=== PATIENT | female | born 1965 | race Caucasian/White ===

== ENCOUNTER 2023-08-08 18:53 | Emergency (ER) | payer OTHER, SELFPAY ==
[2023-08-08 19:03] VITALS: BP 178/100; PULSE 77; RESP 16; TEMP 36.5; O2SAT 97; BMI 21.0
[2023-08-08 19:14] VITALS: RESP 18
--- NOTE | 2023-08-08 19:18 | ED.NECK1 ---
Documented by User: FEDE Strong 08/08/23 19:21 HPI - Neck Pain/Injury General Chief Complaint: Neck Pain/Injury Stated Complaint: NECK PAIN, HEAD PAIN Time Seen by Provider: 08/08/23 19:05 Source: patient Mode of arrival: walk-in Limitations: no limitations History of Present Illness HPI Narrative: Patient is a 57-year-old female who presents to the emergency department with bilateral neck pain that she noticed this morning on waking. She denies any mechanism of injury or trauma. She denies any pain radiation to the extremities or peripheral paresthesias. She states she has significantly more pain on the left paracervical area into the left trapezius area. Pain is significantly worse with movement of the neck. She has not had any visual changes, chest pain, shortness of breath. She is ambulatory. She took aspirin and Tylenol as well as a Flexeril earlier today without improvement. Related Data Home Medications Medication Instructions Recorded Confirmed atorvastatin 20 mg tablet 20 mg PO DAILY 08/08/23 08/08/23 buspirone 10 mg tablet 10 mg PO BID 08/08/23 08/08/23 sertraline 50 mg tablet 50 mg PO DAILY 08/08/23 08/08/23 Previous Rx's Medication Instructions Recorded methylprednisolone 4 mg tablets in See Rx Instructions .Route 08/08/23 a dose pack (Medrol (Adolfo)) .COMPLEX #21 ea nabumetone 750 mg tablet 750 mg PO BID PRN pain #10 tabs 08/08/23 orphenadrine citrate 100 mg 100 mg PO BID PRN muscle pain #14 08/08/23 tablet,extended release tabs Allergies Allergy/AdvReac Type Severity Reaction Status Date / Time No Known Drug Allergies Allergy Verified 08/08/23 19:07 Review of Systems ROS Constitutional Denies: fever or chills Ears, nose, mouth, and throat Reports: neck pain; Denies: throat pain or nasal congestion Cardiovascular Denies: chest pain Respiratory Denies: shortness of breath or cough Gastrointestinal Denies: nausea or vomiting Musculoskeletal Reports: neck pain; Denies: back pain or extremity pain Integumentary/Breast Denies: rash Neurological Reports: headache Endocrine Denies: excessive urination Hematologic/Lymphatic Denies: easy bruising PFSH PFSH Social History Smoking status: Current every day smoker Exam Narrative Exam Narrative: Gen.: Awake, alert, in no distress Head: Normocephalic, atraumatic ENT: Moist mucous membranes; No bony point tenderness of the midline cervical spine. Diffuse tenderness of the left paraspinal muscles of the cervical spine and point tenderness of the left trapezius muscle. 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 Psych: Normal mood and affect Neuro: No focal neuro deficit Skin: Warm, dry, intact Constitutional Vital Signs, click to edit/add: Last Vital Signs Temp 97.7 F 08/08/23 19:03 Pulse 77 08/08/23 19:03 Resp 18 08/08/23 19:14 BP 178/100 H 08/08/23 19:03 Pulse Ox 97 08/08/23 19:03 O2 Del Method Room Air 08/08/23 19:03 Course Vital Signs Vital signs: Vital Signs Temperature 97.7 F 08/08/23 19:03 Pulse Rate 77 08/08/23 19:03 Respiratory Rate 16 08/08/23 19:03 Blood Pressure 178/100 H 08/08/23 19:03 Pulse Oximetry 97 08/08/23 19:03 Oxygen Delivery Method Room Air 08/08/23 19:03 Temperature 97.7 F 08/08/23 19:03 Pulse Rate 77 08/08/23 19:03 Respiratory Rate 18 08/08/23 19:14 Blood Pressure 178/100 H 08/08/23 19:03 Pulse Oximetry 97 08/08/23 19:03 Oxygen Delivery Method Room Air 08/08/23 19:03 MDM - Neck Pain/Injury MDM Narrative Medical decision making narrative: No indication for x-rays at this time as the patient has no radicular symptoms, no falls or injuries. She is treated for symptoms in the ER and discharged home with medications for symptoms as well. Follow-up with PCP and return to the ER if symptoms change or worsen Medical Records Attestation: I reviewed the patient's medical records. Discharge Plan Discharge Chief Complaint: Neck Pain/Injury Clinical Impression: Torticollis Patient Disposition: Home, Self-Care Time of Disposition Decision: 19:17 Condition: Good Prescriptions / Home Meds: New nabumetone 750 mg tablet 750 mg PO BID PRN (Reason: pain) Qty: 10 0RF Rx Instructions: Take with food orphenadrine citrate 100 mg tablet extended release 100 mg PO BID PRN (Reason: muscle pain) Qty: 14 0RF methylprednisolone [Medrol (Adolfo)] 4 mg tablets,dose pack See Rx Instructions .ROUTE .COMPLEX Qty: 21 0RF Rx Instructions: Taper as directed No Action atorvastatin 20 mg tablet 20 mg PO DAILY buspirone 10 mg tablet 10 mg PO BID sertraline 50 mg tablet 50 mg PO DAILY Instructions: Neck Pain (ED) Stand Alone Forms: Portal Instructions Referrals: Physician,Non-Staff, MD [Primary Care Provider] - 1 week Discharge Date/Time: 08/08/23 19:44 Documented by User: Morris Hernández 08/09/23 19:01 HPI - Neck Pain/Injury General Chief Complaint: Neck Pain/Injury Stated Complaint: NECK PAIN, HEAD PAIN Time Seen by Provider: 08/08/23 19:05 Related Data Home Medications Medication Instructions Recorded Confirmed atorvastatin 20 mg tablet 20 mg PO DAILY 08/08/23 08/08/23 buspirone 10 mg tablet 10 mg PO BID 08/08/23 08/08/23 sertraline 50 mg tablet 50 mg PO DAILY 08/08/23 08/08/23 Previous Rx's Medication Instructions Recorded methylprednisolone 4 mg tablets in See Rx Instructions .Route 08/08/23 a dose pack (Medrol (Adolfo)) .COMPLEX #21 ea nabumetone 750 mg tablet 750 mg PO BID PRN pain #10 tabs 08/08/23 orphenadrine citrate 100 mg 100 mg PO BID PRN muscle pain #14 08/08/23 tablet,extended release tabs Allergies Allergy/AdvReac Type Severity Reaction Status Date / Time No Known Drug Allergies Allergy Verified 08/08/23 19:07 [facility] Social History Smoking status: Current every day smoker Exam Constitutional Vital Signs, click to edit/add: Last Vital Signs Temp 97.7 F 08/08/23 19:03 Pulse 77 08/08/23 19:03 Resp 18 08/08/23 19:14 BP 178/100 H 08/08/23 19:03 Pulse Ox 97 08/08/23 19:03 O2 Del Method Room Air 08/08/23 19:03 Course Vital Signs Vital signs: Vital Signs Temperature 97.7 F 08/08/23 19:03 Pulse Rate 77 08/08/23 19:03 Respiratory Rate 16 08/08/23 19:03 Blood Pressure 178/100 H 08/08/23 19:03 Pulse Oximetry 97 08/08/23 19:03 Oxygen Delivery Method Room Air 08/08/23 19:03 Temperature 97.7 F 08/08/23 19:03 Pulse Rate 77 08/08/23 19:03 Respiratory Rate 18 08/08/23 19:14 Blood Pressure 178/100 H 08/08/23 19:03 Pulse Oximetry 97 08/08/23 19:03 Oxygen Delivery Method Room Air 08/08/23 19:03 MDM - Neck Pain/Injury MDM Narrative Medical decision making narrative: No indication for x-rays at this time as the patient has no radicular symptoms, no falls or injuries. She is treated for symptoms in the ER and discharged home with medications for symptoms as well. Follow-up with PCP and return to the ER if symptoms change or worsen For this patient encounter I reviewed the mid-level provider?s documentation, medical decision-making and treatment plan, and I personally spent time with this patient. Shared APC visit, physician attestation: [id number]: The visit was performed by both a physician and an APC. I performed all aspects of MDM as documented. - Kevin, DO Discharge Plan Discharge Chief Complaint: Neck Pain/Injury Clinical Impression: Torticollis Patient Disposition: Home, Self-Care Time of Disposition Decision: 19:17 Condition: Good Prescriptions / Home Meds: New nabumetone 750 mg tablet 750 mg PO BID PRN (Reason: pain) Qty: 10 0RF Rx Instructions: Take with food orphenadrine citrate 100 mg tablet extended release 100 mg PO BID PRN (Reason: muscle pain) Qty: 14 0RF methylprednisolone [Medrol (Adolfo)] 4 mg tablets,dose pack See Rx Instructions .ROUTE .COMPLEX Qty: 21 0RF Rx Instructions: Taper as directed No Action atorvastatin 20 mg tablet 20 mg PO DAILY buspirone 10 mg tablet 10 mg PO BID sertraline 50 mg tablet 50 mg PO DAILY Instructions: Neck Pain (ED) Stand Alone Forms: Portal Instructions Referrals: Physician,Non-Staff, MD [Primary Care Provider] - 1 week Discharge Date/Time: 08/08/23 19:44
[2023-08-08] MEDS: KETOROLAC TROMETHAMINE 60 MG/2 ML VIAL IM (19:35)
[2023-08-08] MEDS: METHYLPREDNISOLONE SOD SUCC PF 125 MG/2 ML VIAL IM (19:35)
[2023-08-08] MEDS: DIAZEPAM 10 MG/2 ML SYRINGE 5 MG IM (19:35)
== END 2023-08-08 19:44 | disposition home or self-care (01) ==
PROVIDERS: Emergency Provider Emergency Medicine
DX: M43.6 Torticollis (principal); Z79.899 Other long term (current) drug therapy; F17.210 Nicotine dependence, cigarettes, uncomplicated
CPT/HCPCS: 96372; 99284; J1885; J2930; J3360

== ENCOUNTER 2024-08-21 05:01 | Emergency (ER) | payer OTHER, SELFPAY ==
--- OUTSIDE RECORDS SUMMARY | 2024-08-21 05:10 | XMS_ITS | CCD ---
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 Coding Summary HTMLBase 64 ZekrnzwzMWq9dWe+PGhlY WQ+MI5HTEHzM56osCNuaJ 3RU4lHQJ5JFOJVMOMIEP5 ZSE0vfTE6BOolY2NkovPs TsruyEDuJM83ZUt7NZI7d BcmQEfrqF6tlGFiH4s8Nj DfUC34jG80YYxlTMFcCaT 3LjZpbjsgbWFy T6qyXhRugNWlWcp+PHRhY mxlIHdpZHRoPScxMDAlJy NueKhkBA0dUb3pLWAdXAN vbGxhcHNlOiBj j8ylOPZoLDdnNP0spIqdH 7OkdCF9KPFak3n7Iv69xM I+OTSgFHU8yLreKHlka74 2FsRct0nmRZV4 qMWeMVpbOVU0R96rb3F2H YAhXBFtKVE5nWE7hS2dlV lpzouhG2GgiBKsMrQ1TRC 8sVMzjM1oeIuj kiaffN6sTpk+E35GNS7EZ UVPAN7OUhj5E7VaFmjntR I+CG99SQNvEV40uDBdnNP zv4zvzVn4MbWa GXCdYRZ1uWhlTGnfd7HaK XHsA44vaWPqj6Z8QCZawD lfbXPmPyMsuCF9xM4eHPi ecjdja6ucimdm Sknbw1myxz25mJ43R75jJ FgfUBBbZGJ2ZDKxDBCypD ovtm9tfE9yDt4+FKoxb7k xc2kwkFn6XfUu FQVayyQptCljKWU6p9UnL g45O7RpwLwir6AsWrd4gk 94oXZgc6L1nVQ0VNjaCGR lmU1aLGhnYtL8 QVDkYdOacQ44mHWqVHmiP f1olLtqrJymZJ2lLTBjem mfACRyxT1iAHQwoDQhvEk tTR4aLLEhsmyo p450JeTaCWJ8SXCqrPHxI 0YxdJ7xBdXkHEHsKFZkP7 BwzZYhUTamI118WBqtCgY 1NGDlbhWlN5Fy UBByjMbuJtT1n9S4Jt0Nn 6ZlsomkRJI3DWbsERAaDp MsNuCnSmK2J7OmYqq7HSJ btTjoJB0kU6Ru EYLvfrqcbkmfcJB2DDMdH DYxxZ09eBEuPLpmLy3qm4 Y4d051SLJaMQRgbG19Ez1 udDogMTBwdCBU sF4xalgzz4fwvrcbSfSkI KXpLLq6NFq0BOYbuBrsMs WnWQH7ApT8TPE7wIRbmF4 onNiibtfwkR5x Oyc+O99jaJ1zWPK8WFF9r cdpHJNxxeDfLI80JQ53W9 RyPjwvdGFibGU+PGRpdiB amHhwLP3aVxNv b7pla0MmSJefU7BuVSWeP HkiWzv8KNHjZKX0xGD8rY 5iWLBnOAscv3W3iAT4R8K ifhJnke6aj4ch FCWfOIkaR87cfEHuk9Q6D ZGeuWA1PNDgdQnqObJcsL 93Oyc+ZXHznXnbb6EeTyj dk4ajy4ibmJu8 LnHdOOEzueWelOjiEEX8c 5VeKw81N27sGSybPUIsIV CqOSNgFOQlqEeuwe4fiM8 wIi8+PGNvbCB3 pEG9mV6sSQMiIlB7LTaaK 343DhPseHQlOyogt5igf6 qlyXi9ZdQmAIZparErzTu lERA6m6JgTp95 X99yRKynKCIpVRQqJZCfF WDtfWyiko5zfF2nJz0+PC 0nx9sfif00uO40vFP+PHR pGIU5bFboKPof XBZjgA1rATxtMsM3DHOfW vGgeW09aNYiBQyoDz3vvR akpZenIQ5lSHQakyivp70 6LpAhq5lgVKId yCEvGYvcTRZ2D38ox4U0W CWwAOEzREA0bIT4lP4ltP lnbjogbGVmdDsgdmVydGl cCZrmSMwsU534 IHRvcDsnPlBhdGllbnQgT aYeQNz4K0JdKoz8FQSuuZ soCL6wyNHiNQpdUf7qnUd ovHmgSS9yFYMc xuvbl894VxIcr0twDMJqn WCeHMxsKIZ6S75xx8F5SM ArUREcZYT6aCW3hH8xhSe nbjogbGVmdDsg qiOnpCadBFfdNSjlP471Z HRvcDsnPkJpcnRoIERhdG U6DV48DY86iNSei0C2bHC 1I6SoKKOzrwgm ukyoiAL5YRKeOEEmdE36N g9pbDngGa2gOSOpCRF8LF TakRClL6DqtP4sVaQoRGD iHXPvV3QtsAKu PGjzD392EVcnEsF5CWRgo aDuP6UhBYAbuWhtBuH5o2 A8Sg5XD3V4UD02TX34dLN uu8L4eXL9Y3Qd ZTJcpjuivaprlDC8ANKrA AHmyX01It3eqDqxBf4uOE LeZXS4ZLLizBEkW4CthK4 yOiAjMDAwMDAw H9AvbLXgEPsfI608IGfqT iK3YUCipvJlJ0GiEFUucY gyNjU5f4F1Yz4TCVi0CT3 3AR29hAVgf1V3 tWP0O2ObGITuzlhfylijs AW0BYSvGIRjrZ54Hq2wcW orCq5yUVGhJQP2UFDbxZZ kW2MojH1nRaYh KTTrOGRtE9XbaITeKVtgO 865UUyrWyJ1JHMnpzQeS9 FgNDQvjNmtQlD4g0J6Ku4 HNYUdWF42CSY1 iCW9AA76SB67U5CsHjxxs GFibGU+PHRhYmxlIHdpZH RoPScxMDAlJyBzdHlsZT0 jGy4bPEHsYMXi gQkquLHwLlEwi2pkFRFwK WnnMU1vtLbmO9DvhVL0JM Vqu5d0Zn77V22pS0HgnXD +BGTpjFP4mDM8 iY4kOpRhHlF5LTrgM987L pAjeLShZonva4utq2yckD v4YdY8OKDracJbrLfoQDO 3x7XgZz71C23h IHdpZHRoPSIxNSUiIHZhb Zzcfh6ufS9gWk7+PGNvbC D2pCX9gG4kRiZvIxI3RSw hV076CrEvkOCd Pdvbv7jdb5hsdMa2UeCdH MSrqkLhkYzfNOT8t2JuFy 37A2EgfOols4OcIwn4nb6 3pUPyv9Q9bTT0 X4LgGBUtjwnrsOHobIluL B2oHNNstncqLADzpJ5uCX DxV0u9UrRtMtQ5JBzrR8F intR3TFPtaKNp JAciKAE5A14dp3J7AQCzD SGsEOU7lGI5jK7sgNnddj ogbGVmdDsgdmVydGljYWw rVJzlX140RHIf jOfxXPVazW1kXRNeiVVlu PluNX1nBASbxaakDxNDYR VSLCBTSEVSUkkgTDwvdGQ +UQIaVZO7mBuy RCqoFSSklF9vXSTxH0f4T gLqYjZ4NJidY8HwCESxpn tqTe52jQ2tBvKkQuU3MJq eQ4GueqJ7WGYo hKKlTWqwIUN2K44yh8Z4B SWiVTZkBMZ6jSL2nF4slA lnbjogbGVmdDsgdmVydGl qATgnNEdrO296 PXTrqTnxRgAlQjC3FfX1T jg0T6FtUrz3GQIycUkjFP 3uaLTvHYabWp3rwBkqwXn iLE3tLTWfghno YMDttP5kCFAauMGhaQazR J6vFZDkxoeyb793VkHuCE D5IWXidTCnW5ShwP6qPcB yTGMoBBAoL5Wr lWSaNDwjN921GOhuRfK4L URbsbXlF7QnGBYrxMhlKa A3i5Y1Dl37MgUNJTFavjn vdGQ+PHRkIHN0 iDvbWLbkITUcjC0gMXUsP 8f7PkSfXkA8LUzdE9RwPI FxdmtcMb78oL1fPxZjVmA 1NCxcR5LnitP1 OSRonWKjSNdfKPA9G71jd 6V6SVUsYSSbZCO8qSO5uQ 1hbGlnbjogbGVmdDsgdmV ydGljYWwtYWxp S316BCYciQztRzOHDYKFR TwvdGQ+MLVwCNT4hDjcAA dgGDYulU2rAROzJ7i8KnP tOhW8FKdoA8Go XECopaupVg80kD4wChUcM bU0GRkpL1HbqkZ1NDSulP BgFDlpDRE2E77op5P6EHG yJQXjKRO2lFM5 mO1uvWsqgouwwJSacVzwl vHvlIjrKAkuECyaJ959QE EigTntUjFfMLZsTF3ldSh vdGQ+QV64mc82 N0RcQxraYvs5HCUnLBG6i KK4zE5cULJyYDovu2P5oG I4R1MaimCdrm1qt1cpAUL dAHbgW88hgVTs o1X9KDVjcRM2BOXcaDgrW xOoyH50Qzd+PGNvbGdyb3 XqBriip5hzo6jzfQf9QdA wJSIgdmFsaWdu EWH1s2OwRu21I82hXSpmZ HRoPSIzMCUiIHZhbGlnbj 2ofJ3gKy1+LAEzzTJ2gHF 2bK6eHiNwKrF4 HJouM118GdUluECkFffnd 1egg5vfkMh3BmMuHDUevi PjySffRRV6o5MmBj48X0U yzDzmq3KqXuu3 jk32lGFrq9X8dTE5H1DcI HHskbczuPSetWlePU9tFN JpmcjzQECtaG7ePRPmE0n 3YhOePgF6LEku L7IecnJ0CREexZVgRMLyc IJHzR7vwknua0pjpobbCy YxVKPiGRb3ZPf8MFTbpGt fJmUnHCF8DbV2 URW0mGLqwV5ozMngvejbe G9wOyc+LXm1m4cgyMBwMA 6ytYY5CT88PQ87qMCnq4U 1xUX3W5JbTVSd ysaxcgytjYU7LHZcMKVlt N15Ys0tcSluGc1qPZDbRY S1ZDRamABbN6QktS8gZtI uLPSdPHKcG6My jMUlXXqnT003VXfdDuH7A EMjnbIfT8KnUZSdeUvwXt D4w6R3Ki8HQF72IM27FC2 6lHRon3D4oJF0 L0TdIUPxlireanqecUY8H WIzVWQffX38Zs1dyKfpIc 3lMFXhLZE5IZYixSNuQ2G tvI2cUiQtNFPh FWPfY0MliHVfSGtzR200A BjqMoR1MFDwdyZkZ7JzFP XueTanUoU3s6V3Av2HXg7 2FC08DB00uXEq w7R2fYT7J7KhXEKfscrhb sqrmYC9RPVdUOHeeZ27Hv 5bqQrgPo3rNNDcZNI2RWY xbEXxN1ZxaT0w QaIrXABpUNFpL6KneWBgO ZnwE006DNfpLnZ4TKYvnu GmA5UwAIZchIrxRzU6e5V 4Ty7QQMizxtw7 R0ZzVaamsMB+ZO63ZYEgZ A77mHEijGNcb4mbrVn5Tm HuHZZgPUR6bIpjXNilo4F kSDTgJ80jtXLt c2U (more content not included)... [facility] Coding Summary HTMLBase 64 ZhzwrgvoVSc0xIe+PGhlY WQ+TE5PRXOhS29jhUNcdK 6YR7qSWT9FTUMXYWVENI4 MFV6atRM6OLqqU9YxroWm TpbnnQIhCE42WSs8ETX9w LnbVDvukZ5kvFIgJ8w2Sd ZlEB69yS39XYczSSEaQuG 3LjZpbjsgbWFy H9jxXfGoeQMyQjw+PHRhY mxlIHdpZHRoPScxMDAlJy NonRenGR1iAt2mSDHnGLI vbGxhcHNlOiBj k9hxOPWeJAfjQC9kvOyfR 7CwyTZ1TVFnj9l6Ah15hA I+PNXiBUR2lSxrHDfsm04 4ZpMpd8cjOVU9 kCAxNPkiBIN0E35mm5R7T KIeGHNnAFZ4bLG6fM1jiO knlzmzM3AmhVStCyX4EVG 9gJCuaC9ngStw oxeyrT4oLcy+V42RDK4BZ OGWMQ7RCft3G1DtCopuiI I+UN33HOGaAR10xBXcwCW bh5bczAh9PzEy TKUxKSF6xSxwAUnia2CxW LPjC99ssKCcv3Y9ZVHniA bdxLXuArSguVX6fZ0mTFc feidwq5efqgla Zmghr6ntmi97oU20V54uC TcxVMUnBFL8LMZgPFTzfR xyty6ypD2jFe4+TDtsh1r sx7ahgOa4GsAl ATQuyyDfdBlaWSI5s6DoC o98W4OxdZphs5RvMes0jf 39qXFft7O3tWW7LSyqDDM mfT8oVYfxKbH7 IJGgWgEdsJ06nURmHBwaA v5epJpcmCizAP7dHUIwcl khTTTevA1kRMJqiURpfQo wVL2mERTfnjez t251NiOfGKE6HFGasTXkP 6EopH4jFhGtJFWnMCEwD9 JndCQsYDtmP711XCdsMxO 8SQJhvcGrU1Lw ZAHpiRieLcZ9d2P0St2Sf 6XmipnpRAA1MAhbBGGcZz MgGhNkCiZ7X1QnEpe0HPK txCnvXJ6dE4Ut JSWfqnfgdvkymPR6CNZnG OJozJ87uSUuXZerXw4cq3 O7k986HKUwAZIhoK83Sx6 udDogMTBwdCBU iX6heoczy7tmxnlmAcOwW CAoWZk0LUg8ZHQjvXewRe FeHXS7VcQ6VMV8gEYhsI5 dcOicctxosK6s Oyc+Q84tnA8sNJH3TIW2e zrbTZVcptNaKP78IT31M7 RyPjwvdGFibGU+PGRpdiB lbApoYO7wXsDq z4ucs9XgYZecG0YiCAFkC XbySed8UEKgQRV0nSW0hO 6xMHYcBJqih5S8rDE0Q7N qjcKsap4we8qb SYZgDUnjL66sfZEyv1Y1B GFppGT2QWYykHcvNaVkuJ 93Oyc+CZXzpClwm3UiOmr wn6xoi4mojNt6 CiZaGIUpbxHvgLcpUDV6y 6NhAx54J20wTRauYUJnTC OkDSGyJXZolSwmvv7lwP9 wIi8+PGNvbCB3 rID4vB8gUZNzCuC8GFgnV 621ZiNeoLGqDrdbr3tfq3 ndiFc9RiJjXZVhtwHplFw zUIO3h7QqBe64 D06tEIkqZTWfBZTlODVtI BZnaIxgsv1hxI4aKi3+PC 9nf6jwbw55qD24aSJ+PHR jVGB3oWflQFuw WOLiiZ6rBTtpAqF0ITLdO uHjlL39cNHqKPzuAl2aaM jgaTiiFA3oZZJuicjdy27 6AqWzn6bjGKDp hKPtIPpgOUN4L18oo0X0O CKsTRWgODJ3vFU8pH9uoC lnbjogbGVmdDsgdmVydGl xTRkeEKqqI806 IHRvcDsnPlBhdGllbnQgT nBfTIx4P6VgYay9OHBrkZ aaRP8aiJGoDCibKj5iuOm srUohGH6vQEKl jrliy800VoFuv2wwPFZkw UZaNZrxHCL5L17yj8L0AN LsVQMcFPM5iNG5sV2hvPo nbjogbGVmdDsg lbMikFyhDFvyZGqjD858U HRvcDsnPkJpcnRoIERhdG Y1YI82OR24vPTey9G2eVG 6G8BiIAFyktez dszczMU2JNVdCNHrxA11G b6ugGstAr3aMFDfEAB2HE OmaPSgV5YwmY7zAbGvWUR tZKPfN5RafMFj WVnjP524UQckKuN3EGFvq uLfK5RoDOWwhAvhQfZ3m8 E5Kk5CB4W2QH19RL24lQY ex3G6dOZ6U9Aq HXWyoxyxahcpcFL2GGEjF UMgsN51Fi7prJpxLx7gYL GtUKJ1HLWtlCXrU2PjwP0 yOiAjMDAwMDAw T0SotZEdQPafA630AApcU sT1VTGzavVbU9AnUCOwkK gfJeS9v1F3Vd4XQQs8UR8 9IZ20dGEhh0N1 yME3B1YwLYFlqmpazenzg IZ4SADjOTNxbN60Dq7ykL csNj2kIXBnXNE5HJTkrWV tT0MhvY0lLyAg EHJrPYOeS6LixFRkBIauG 988IQbqNtO8PHXcsmYeM7 MaHFCdaJepXiT0r9T7Re6 YDMCoSB02DNU5 sEI3UT53NN40T0TiLzgqr GFibGU+PHRhYmxlIHdpZH RoPScxMDAlJyBzdHlsZT0 qRf9cWBUsZDQg oDkgcQEqFhOpj9npJQNyE DuuNF6vnSsmW4BpuHL3FK Ita8v6Jb01E63eW8TutOR +NKZqaVP6cMF6 zM2fYiZwUoI3GYhjE493G tJduJFtUxcdz9api4taxQ s6NjX9OOIgddAabPuxDXU 1k0MgKn45I28s IHdpZHRoPSIxNSUiIHZhb Gkphq5jiE0xXe0+PGNvbC F8iKA2nW1eYnWnMyU7GWe vC569GmSgrODh Rxucu2pxw7yjpOo5QeEwK ZEyowKwkZfqONN6s1OyXb 02K4DuaWvxc2QeYxd9vh0 8oMRch2J8yOF5 H6XjLGSyullksXXkwApyU Y7bRLBnrafkQMXsnZ1cZI BjI3d7SxTbCeG6SPaaH5G ihlI5VPBhyGZs RAbbPJH3H28jw8D5HFPjX MZjDID6qVP8wS7dyQrdyw ogbGVmdDsgdmVydGljYWw xFRdvI969FQJm dVfiAALmzF3hHEArsQMht QarGW4bMUXbjpdkBrEARF VSLCBTSEVSUkkgTDwvdGQ +EZAnVFE2yJjh MFtxVHSldZ3pNMGaE1g7X mYaSgB8MWmzS1MiTFKzzd raQw96iA8fOhEpVdG1DVk qM6OzihW4NVIp pWLkXPzpBGO8S98ad5O4L CAyCOLaRVZ9dVI6aF7hsL lnbjogbGVmdDsgdmVydGl eCKhgRCmbI661 HZPxwHmpOfHjHkK0CpX1Q ub9K4LuYew7RLBenPfcPP 5umILqQIdaNn6xrIixfLn fSH8sAYIzazgt TQPjbG6kBVJlfGZizQfhN P7qBWKrrtatp162IsDdNH S3THJmeHHeK3NnjD3mUkT mVNMgTHSnH1Tk gAMyCUyxK478AKfoMnC0W HUvuzGbK5EsGXYiwNdlYe Q1o1T8Ja41UbLCLAOfwdi vdGQ+PHRkIHN0 oGvoZNuwTNYxuI1wYHLsM 4c3OiOuKaW0BPwaV7OxOF FhrzykFu79qS4rGmPcRuR 8ROmmV5ZghxH0 PLEliBImRHxvWDX5C64ub 6I1OLZwWWEoNQC5lJD7xB 1hbGlnbjogbGVmdDsgdmV ydGljYWwtYWxp U399BHCveEmrTqYBLNENZ TwvdGQ+BSWaJAX4cPttDO hgVJIzyQ5gMBDsL4l3RhH fNdF2GLvrS5Qw TVEononsSv45eX0lYhSrL qL6HAjtH9DtglZ4JXWndT QjHJagIKP3L66xg0B2IGC nQQGnQDM9kKT1 aK9zrDdxobbpvCJzxJmpj tBseQdgLHzoWYgaX509OP PhtGloCd6YNH05AI61O2K yPjwvdGFibGU+ PHRhYmxlIHdpZHRoPScxM BNbHrKlqIbiQT3aHz9mEW ZwJQBtgIjvaNDeTrWll6f pKDHrTRnfMF8d vBijG4YycWT2ITPbu8z9O f76T20zT8JkrUM+PGNvbC A3pHF0oM1vClAoZvG6XRb rW578YzNcfKOt Eqhtz4qbd7uvvHt1TdTuB BDpflQfaWkuAXF0u6YpFs 12L80oELwwFQZsMFIoFCS fHMQwdBtwvz1g pX6xQv3+CWMywVE8zJV2i G3vDuWfBqU4PJywH948Qe RzgHQrDvbaX79pS7GnsJK +ZQEiDxg1PZMt tBbdLX7yfQGnRQomDe7xJ IE8XtHrOjTrGCpfA0VzLN WaedrbafegqSJ5HXAyNVE edB90Ky2dtVhd Gy8nTUAnCMM1GHDgzUAvV 5FpwD9fXaLoSIBwFUKeB1 FzoXZxBWatX563JOpfOoH 0ICKsfkKoL8Hv CVGutAdqEtI4k7W8Dd6Ff ItaiZBjGH7wXoPnASr3D2 IvDzm9KUBunWpeAU1wgCV jJFdiAi8apFjm mBccXL7rIQCqnrpmi310O rWeg3eeLTEqlDDcJQubSH X5O81fi0P1YTUmJCPsVTV 4vQD9iX8xtUsj bjogbGVmdDsgdmVydGljY TpgBGkrW935USXulKjjAl RDCuz3W5AjGho8VCIhyQb eHF5sjIOeSZpn Ng0faOhteAsrPP4oLVEbd nhoe273QiXvv6dhEPFmvB QfGZcgFCI9B35la0E8XRC uMRHfZTN6vWT8 bW7brOizjqpkyDYnaCipk bQtqTirQHfsGJolY239CK TtgKdcQv6XRuj0N3ZvHdz 7LNYmuCbvND8b fPMhHSlgSb2siAgaoEowY I4gNOVvzkyaa627EbBxo9 swVWEawRFpCIioIFA0C05 lm4K0LBHnVSIy HIJ8lHL1kK3gjRdgpbniw GVmdDsgdmVydGljYWwtYW woB311YHJlnRnqVsZcrAJ yOjwvdGQ+PC90 ka60A6MbBcaxGtj5FJBnW WO1mUS1jF0vZREvZYeov4 Z4mHJ7Y8SfijEdvg4ay6e sJDNeWFhxX67y bGF (more content not included)... Normal [facility] ED Note-Physicianon 08-08-19 ED Note-Physician Basic Information Time Seen: Darren Guzman PA-C 08/07/2020 16:24 Chief Complaint Dental pain ongoing for last year. Multiple carries. History of Present Illness Patient is a thin 54-year-old female who presents emergency department with a chief complaint of dental caries and dental erosions and dentition 11 and 12 into the pulp. No periapical abscesses appreciated. Patient states that Pen-Vee K will give her thrush, but has had amoxicillin in the past and this does not produce this reaction. She was seen at [place] [facility] urgent [facility] today, and was given a prescription for amoxicillin, but states that they told her that they could not write her any medications for pain, And referred her to the emergency department for evaluation. Review of Systems A 10 point review of systems is negative except as noted above. Medical and Surgical History: Reviewed and noted Social history: Lives at home Tobacco: Denies Physical Exam Vitals & Measurements HT: 157.0 cm HT: 157 cm WT: 48.0 kg WT: 48 kg BMI: 19.47 General: Alert and oriented, No acute distress, Comfortable in bed. Eye: Pupils are equal, round and reactive to light, Extraocular movements are intact. HENT: Normocephalic. Dental caries noted throughout the mouth, there are erosions noted to dentition 11 and 12 the extend into the pulp. There is no periapical abscess appreciated. No purulence no discharge no drainage. Neck: Supple, Non-tender, No jugular venous distention. Neurologic: Alert, Oriented, Normal sensory, Normal motor function. Cognition and Speech: Oriented, Speech clear and coherent. Psychiatric: Cooperative, Appropriate mood & affect. Integumentary: Warm, Dry, Bright Medical Decision Making Reviewed the patient's OARRS status, and there does not seem to be a pattern of narcotic abuse. He is to continue with the amoxicillin, she was given a short prescription for naproxen and Norcross, she is to follow-up with her dentist for definitive care. She understood and agreed with the plan. Patient was given topical dental analgesia. Assessment/Plan 1. Dental caries into pulp (K02.9: Dental caries, unspecified) Disposition Plan Patient Discharge Condition Improved Discharge Disposition Discharge home Discharge Prescription List Prescriptions naproxen 500 mg Tab, 500 mg= 1 tab(s), Oral, BID Norcross 325 mg-5 mg oral tablet, 1 tab(s), Oral, q6hr, PRN Follow-up With When Contact Information [facility] [phone] In 3 days 08/10/2020 EST Additional Instructions: You must follow-up with the dentist that is going to perform the procedure, finish the amoxicillin when she started. Use the naproxen for pain, Norcross for breakthrough pain. Dental: [facility] [phone] In 3 days 08/10/2020 EST Additional Instructions: Dental: [facility] [phone] In 3 days 08/10/2020 EST Additional Instructions: Dental: [facility] [phone] In 3 days 08/10/2020 EST Additional Instructions: Theresa Can In 3 days [address], [place] [address] [place] [address]- [facility] (1) Additional Instructions: Patient Education Dental Extraction Dental Caries, Adult Problem List/Past Medical History Ongoing No qualifying data Historical No qualifying data Medications Inpatient No active inpatient medications Home naproxen 500 mg Tab, 500 mg= 1 tab(s), Oral, BID Norcross 325 mg-5 mg oral tablet, 1 tab(s), Oral, q6hr, PRN Allergies penicillin (Thrush) Lab Results No qualifying data available. Diagnostic Results No qualifying data available. Normal [facility] Comment on above: Result Comment: Elec tronically Signed By: Darren Guzman PA-C\.br\Date and Time Signed: 08/07/20 20:52 EST\.br\Electronically Co-Signed By: Grayson Yun MD\.br\Date and Time Co-Signed: 08/08/20 07:10 EST Consent for Treatmenton 07-21 Consent for Treatment [id number] .[id number]:127 Normal [facility] Discharge Instructionson Discharge Instructions [id number]:127 Normal [facility] ED Clinical Summaryon 2020 ED Clinical Summary [place] [id number] ED Clinical Summary Person Information Name: LANA HURTADO/[facility] Age: 54 Years : 1965 Sex: Female Language: Sinhala PCP: Tehresa Can DO Marital Status: Visit Id: Visit Reason: Dental pain; DENTAL PAIN Speciality: Acuity: 5 Enc Type: Emergency Med Service: Emergency Arrival: 08/07/2020 16:20:52 Discharge: 08/07/2020 17:30:47 LOS: 000 01:10 Checkin: 08/07/2020 16:20:52 Checkout: 08/07/2020 17:30:47 Dispo Type: Home (Routine DC) EVENTS: Event Name Event Status Request Date/Time Start Date/Time Complete Date/Time Arrive Complete 08/07/2020 16:20:52 08/07/2020 16:20:52 08/07/2020 16:20:52 Document Home Meds Request 08/07/2020 16:20:52 Triage Complete 08/07/2020 16:20:52 08/07/2020 16:30:44 08/07/2020 16:30:44 Dr Exam Complete 08/07/2020 16:24:25 08/07/2020 16:24:25 08/07/2020 16:24:25 Registration Complete 08/07/2020 16:24:25 08/07/2020 16:31:09 08/07/2020 16:45:48 Bed Assign Complete 08/07/2020 16:31:09 08/07/2020 16:31:09 08/07/2020 16:31:09 RN Exam Complete 08/07/2020 16:31:09 08/07/2020 17:21:51 08/07/2020 17:21:51 Reg Complete Request 08/07/2020 16:45:48 Reg Bed Request Complete 08/07/2020 16:45:48 08/07/2020 16:45:48 08/07/2020 16:45:48 Discharge Complete 08/07/2020 17:01:18 08/07/2020 17:30:55 08/07/2020 17:30:55 Transfer Complete 08/07/2020 17:30:55 08/07/2020 17:30:55 08/07/2020 17:30:55 ADDRESS: [address] [place] [address] DOC NOTES: MEDICAL INFORMATION: Prescriptions Given: New Medications Printed Prescriptions acetaminophen-hydroco done (Norcross 325 mg-5 mg oral tablet) 1 Tablets By Mouth every 6 hours as needed for pain. Refills: 0. naproxen (naproxen 500 mg Tab) 1 Tablets By Mouth 2 times a day. with food. Refills: 0. PATIENT EDUCATION INFORMATION: Instructions: Dental Extraction; Dental Caries, Adult Follow up: With: Address: When: Oni [facility] [phone] In 3 days 08/10/2020 Comments: You must follow-up with the dentist that is going to perform the procedure, finish the amoxicillin when she started. Use the naproxen for pain, Norcross for breakthrough pain. With: Address: When: Dental: [facility] [phone] In 3 days 08/10/2020 With: Address: When: Dental: [facility] [phone] In 3 days 08/10/2020 With: Address: When: Dental: [facility] [phone] In 3 days 08/10/2020 With: Address: When: Theresa [address] [place] [address] [facility] (1) In 3 days DIAGNOSIS: 1:Dental caries into pulp Normal [facility] ED Clinical Summary [facility] - Emergency Department [address] [place] [id number] ED Clinical Summary PERSON INFORMATION Name: LANA HURTADO Age: 54 Years Sex: FEMALE : 1965 MRN: Acct#: Visit Reason: MOUTH PAIN Arrival: 08/07/2020 14:29:18 Discharge: 08/07/2020 14:34:00 LOS: 000 00:05 Check In: 08/07/2020 14:29:18 Checkout:08/07/2020 14:34:00 Address: [address] [place], [place] [id number] PCP: Provider, None PROVIDER INFORMATION Provider Role Assigned Unassigned SHAWNA BAEZ ED 08/07/2020 14:30:29 08/07/2020 14:37:52 VITALS INFORMATION Vital Sign Triage Latest Temperature Tympanic Temperature Temporal Artery Pulse Rate O2 Sat Respiratory Rate Blood Pressure / / MEDICAL INFORMATION Medications Given: Allergy Information: penicillins PHYSICIAN DOCUMENTATION DISCHARGE INFORMATION: Discharge Disposition: Home Discharge Location: Home PATIENT EDUCATION INFORMATION Instructions: Follow-Up: DIAGNOSIS: Patient Understands: Comment: [facility] ED Clinical Summary [facility] ? Urgent Care [address] [place] [id number] Clinical Summary PERSON INFORMATION Name: LANA HURTADO Age: 54 Years Sex: FEMALE : 1965 MRN: Acct#: Visit Reason: UC - Dental Pain; DENTAL PAIN Arrival: 08/07/2020 13:35:07 Discharge: 08/07/2020 14:17:00 LOS: 000 00:42 Check In: 08/07/2020 13:35:07 Checkout: 08/07/2020 14:17:00 Address: [address] [place], [place] [id number] PCP: Provider, None PROVIDER INFORMATION Provider Role Assigned Unassigned Juan Carlos Pratt PA-C ED PA 08/07/2020 13:43:15 Urmila Alexandra ED Nurse 08/07/2020 13:53:58 VITALS INFORMATION Vital Sign Triage Latest Temperature Tympanic Temperature Temporal Artery Pulse Rate O2 Sat Respiratory Rate Blood Pressure /60 mmHg /60 mmHg MEDICAL INFORMATION Medications Given: Allergy Information: penicillins PHYSICIAN DOCUMENTATION DISCHARGE INFORMATION: Discharge Disposition: Home Discharge Location: Home PATIENT EDUCATION INFORMATION Instructions: Acute Pain, Pediatric Follow-Up: With: Address: When: Follow up with specialist Comments: Please follow-up with your dentist in [place], or contact when the dental offices on the dental information sheet that was given to you with your discharge papers, take your amoxicillin and naproxen as prescribed, take sxju-ods-mxwrqiy Tylenol as needed for pain, and return back to the urgent care center for any worsening symptoms, concerns, or complications. With: Address: When: None Provider [address] [place] [address] DIAGNOSIS: 1:Pain, dental Patient Understands: Yes - Patient/family/caregi shannan verbalizes understanding of instructions given Comment: [facility] ED Note-Nursingon 08-07-2020 ED Note-Nursing Pt seen in triage, p t decides she does not want to be seen and leaves at this time [facility] ED Patient Education Noteon 08-07-2020 ED Patient Education Note Dentistry Dental Extraction A dental extraction is the removal (extraction) of a tooth. You may need to have a dental extraction if: ? Your tooth is diseased or damaged and cannot be saved. ? Your mouth needs room for other teeth to grow in or to line up (align) properly. ? You will be having a treatment that requires teeth to be removed to lower the chance of complications. The type and length of the procedure depend on the reason for the extraction and the location of the tooth or teeth. You may have: ? A simple extraction. This is done if the tooth is visible in the mouth and is above the gumline. ? A surgical extraction. This is done if the tooth is below the gumline or if the tooth cannot be extracted by a simple extraction. Depending on the reason for extraction and the location of the tooth or teeth, you may need more surgery to repair the area (reconstructive surgery) after extraction. Tell a health care provider about: ? Any allergies you have, especially to medicines. ? All medicines you are taking, including vitamins, herbs, eye drops, creams, and zkuj-oyp-zksxyqo medicines. ? Any problems you or family members have had with anesthetic medicines. ? Any blood disorders you have. ? Any surgeries you have had. ? Any medical conditions you have. ? Whether you are or may be . What are the risks? Generally, this is a safe procedure. However, problems may occur, including: ? Bleeding. ? A blood clot not forming or not staying in place where the tooth was removed. This causes the bones and nerves underneath to be exposed (dry socket). This can be painful and can delay healing. ? Infection. ? Incomplete extraction of the roots of the tooth. ? Jawbone injury, pain, or numbness. ? Temporary or permanent damage to nearby teeth, nerves, tissues, gums, lips, or sinuses. ? Allergic reactions to medicines. What happens before the procedure? Medicines ? You and your dental care provider will discuss the type of medicine that will be used during your procedure. ? Ask your dental care provider about: ? Changing or stopping your regular medicines. This is especially important if you are taking diabetes medicines or blood thinners. ? Taking medicines such as aspirin and ibuprofen. These medicines can thin your blood. Do not take these medicines unless your dental care provider tells you to take them. ? Taking ceji-mns-bcuhgvq medicines, vitamins, herbs, and supplements. ? You may be given antibiotic medicine to help prevent infection. General instructions ? Do not use any products that contain nicotine or tobacco before your procedure, including cigarettes, chewing tobacco, and e-cigarettes. If you need help quitting, ask your health care provider. ? Your dental care provider will do a complete mouth (oral) exam. This may involve: ? Taking X-rays. ? Making molds of your mouth. ? Follow instructions from your dental care provider about any eating or drinking restrictions. ? Depending on the medicine that will be used during your procedure, you may need to plan to: ? Have someone take you home from the hospital or clinic. ? Have a responsible adult care for you for at least 24 hours after you leave the hospital or clinic. What happens during the procedure? ? To lower your risk of infection, your dental care team will: ? Wash their hands. ? Put on gloves and face masks. ? Clean (sterilize) all surgical instruments. ? You will be positioned in a dental chair. ? An IV may be inserted into one of your veins. ? You will be given one or more of the following: ? A medicine to help you relax (sedative). This may be given by mouth (orally), through a nose mask (nitrous oxide), or through an IV. ? A medicine that is injected near your tooth to numb the area around the tooth (local anesthetic). ? A medicine to make you fall asleep (general anesthetic). ? If necessary, an incision will be made in your gums to allow access to the tooth. ? The tooth will be loosened with a surgical instrument called an elevator. ? If you are having a simple extraction, the tooth will be grasped and removed from its socket using a surgical instrument called forceps. ? If you are having a surgical extraction: ? The tooth may be cut into sections. The sections may be removed with forceps, one at a time. ? Small amounts of bone may be removed to help with the extraction. This may be done if you have a fractured tooth or a permanent tooth that has not come through the gum yet (is impacted, or has not erupted). Material (a graft) may be placed into the socket to replace the removed bone. ? The socket will be washed (irrigated) and cleared out (debrided). ? Medicine may be placed into the socket to help with healing. ? If an incision was made, it will be closed with stitches (sutures). ? Gauze may be placed over the socket to reduce bleeding. The procedure may vary among dental care providers and clinics. What happens after the procedure? ? If you have gauze in your mouth, bite down gently on it to apply pressure. This will help to control bleeding and help a blood clot to form. ? Your blood pressure, heart rate, breathing rate, and blood oxygen level will be monitored until the medicines you were given have worn off. ? You will be given pain medicine as needed. ? You may be prescribed an antibiotic to take at home to prevent infection. ? Do not drive for 24 hours if you were given a sedative during your procedure. Summary ? A dental extraction is the removal (extraction) of a tooth. The type and length of the procedure depend on the reason for the extraction and the location of the tooth or teeth. ? You and your dental care provider will discuss the type of medicine that will be used during your procedure. ? If you have gauze in your mouth after your procedure, bite down gently on it to apply pressure. This will help to control bleeding and help a blood clot to form. ? Do not drive for 24 hours if you were given a sedative during your procedure. This information is not intended to replace advice given to you by your health care provider. Make sure you discuss any questions you have with your health care provider. Document Released: 06/06/2006 Document Revised: 05/19/2018 Document Reviewed: 03/23/2018 [employer] Patient Education ? 2020 [employer] Dental Caries, Adult Dental caries are spots of decay (cavities) in the outer layer of your tooth (enamel). The natural bacteria in your mouth produce acid when breaking down sugary foods and drinks. When you eat or drink a lot of sugary foods and liquids, a lot of acid is produced. The acid destroys the protective enamel of your tooth, leading to tooth decay. It is important to treat your tooth decay as soon as possible. Untreated dental caries can spread decay and lead to painful infection. Brushing regularly with fluoride toothpaste (oral hygiene) and getting regular dental checkups can help prevent dental caries. What are the causes? Dental caries are caused by the acid that is produced when bacteria break down sugary or acidic foods and drinks. What increases the risk? This condition is more likely to develop in young adults. This condition is also more likely to develop in people who: ? Drink a lot of sugary liquids, including alcoholic drinks, such as champagne. ? Eat a lot of sweets and carbohydrates. ? Drink water that is not treated with fluoride. ? Have poor oral hygiene. ? Have deep grooves in their teeth. ? Take certain medicines that decrease saliva. What are the signs or symptoms? Symptoms of dental caries include: ? White, brown, or black spots on the teeth. ? Pain. ? Swollen or bleeding gums. How is this diagnosed? Your dentist may suspect dental caries from your signs and symptoms. The dentist will also do an oral exam. This may include X-rays to confirm the diagnosis. Sometimes lights, a thin probe, and dyes are used to find dental caries (using electrical conductivity or using laser reflection). How is this treated? Treatment for dental caries usually involves a procedure to remove the decay and restore the tooth with a filling or a sealant. Follow these instructions at home: ? Practice good oral hygiene. This keeps your mouth and gums healthy. Use fluoride toothpaste to brush your teeth twice a day, and floss once a day. ? If your dentist prescribed an antibiotic medicine to treat an infection, take it as told by your dentist. Do not stop taking the antibiotic even if your condition improves. ? Keep all follow-up visits as told by your dentist. This is important. This includes all cleanings. How is this prevented? To prevent dental caries: ? [place] your teeth every morning and night with fluoride toothpaste. ? Get regular dental cleanings. ? If you are at risk of dental caries, wash your mouth with prescription mouthwash (chlorhexidine) and apply topical fluoride to your teeth. ? Drink fluoridated water regularly. ? Drink water instead of sugary drinks. ? Eat healthy meals and snacks. Contact a health care provider if: ? You have symptoms of tooth decay. This information is not intended to replace advice given to you by your health care provider. Make sure you discuss any questions you have with your health care provider. Document Released: 02/26/2003 Document Revised: 05/19/2018 Document Reviewed: 12/17/2016 Elsevier Patient Education ? 2019 [place]. [facility] ED Patient Education Note Education Materials [facility] ED Patient Summaryon 021 ED Patient Summary [place] [id number] Patient Discharge Instructions Person Information Name: LANA HURTADO Age: 54 Years Arrival Date: 08/07/2020 16:20:52 Discharge Diagnosis: 1:Dental caries into pulp Primary Care Physician: Theresa Can DO Provider Information Primary Provider: [facility] Examiner:Darren Guzman PA-C The exam and treatment you received in the Emergency Department were for an urgent problem and are not intended as complete care. It is important that you follow up with a doctor, nurse practitioner, or physician?s commercial escrow assistant for ongoing care. If your symptoms become worse or you do not improve as expected and you are unable to reach your usual health care provider, you should return to the Emergency Department. We are available 24 hours a day. LANA HURTADO has been given the following list of patient education materials, prescriptions and follow-up instructions: Follow-up Instructions: With: Address: When: [facility] [phone] In 3 days 08/10/2020 Comments: You must follow-up with the dentist that is going to perform the procedure, finish the amoxicillin when she started. Use the naproxen for pain, Norcross for breakthrough pain. With: Address: When: Dental: [facility] [phone] In 3 days 08/10/2020 With: Address: When: Dental: [place] [facility] [phone] In 3 days 08/10/2020 With: Address: When: Dental: [facility] [phone] In 3 days 08/10/2020 With: Address: When: Theresa Can [address] [place] [address] Petra Figueroa , [facility] [address] [place] [address] [facility] () In 3 days In the event that this physician does not participate in your insurance network, please consult with your insurance company to find a nearby participating provider. Patient Education Materials: Dental Extraction; Dental Caries, Adult A MESSAGE TO ALL PATIENTS REGARDING OPIOIDS PRESCRIPTION OPIOIDS: WHAT YOU NEED TO KNOW Prescription opioids can be used to help relieve zjpqslvl-pd-fghcsq pain and are often prescribed following a surgery or injury, or for certain health conditions. These medications can be an important part of the treatment but also come with serious risks. It is important to work with your healthcare provider to make sure you are getting the safest, most effective care. WHAT ARE THE RISKS AND SIDE EFFECTS OF OPIOID USE? Prescription opioids carry serious risks of addiction and overdose, especially with prolonged use. An opioid overdose, often marked by slowed breathing, can cause sudden . The use of prescription opioids can have a number of side effects as well, even when taken as directed: ? Tolerance?meaning you might need to take more of the medication for the same pain relief ? Physical dependence?meaning you have symptoms of withdrawal when a medication is stopped ? Increased sensitivity to pain ? Constipation ? Nausea, vomiting, and dry mouth ? Sleepiness and dizziness ? Confusion ? Depression ? Low levels of testosterone that can result in lower sex drive, energy, and strength ? Itching and sweating RISKS ARE GREATER WITH: ? History of drug misuse, substance use disorder, or overdose ? Mental health conditions (such as depression or anxiety) ? Sleep apnea ? Older age (65 years and older) ? Avoid alcohol while taking prescription opioids. Also, unless specifically advised by your health care provider, medications to avoid include: ? Benzodiazepines (such as Xanax or Valium) ? Muscle relaxants (such as Soma or Flexeril) ? Hypnotics (such as Ambien or Lunesta) ? Other prescription opioids KNOW YOUR OPTIONS Talk to your health care provider about ways to manage your pain that don?t involve prescription opioids. Some of these options may actually work better and have fewer risks and side effects. Options may include: ? Pain relievers such as acetaminophen, ibuprofen, and naproxen ? Some medication that are also used for depression or seizures ? Physical therapy and exercise ? Cognitive behavioral therapy, a psychological, goal-directed approach, in which patients learn how to modify physical, behavioral, and emotional triggers of pain and stress. IF YOU ARE PRESCRIBED OPIOIDS FOR PAIN: ? Never take opioids in greater amounts or more often than prescribed. ? Follow up with your primary health care provider. o Work together to create a plan on how to manage your pain. o Talk about ways to help manage your pain that don?t involve prescription opioids. o Talk about any and all concerns and side effects. ? Help prevent misuse and abuse o Never sell or share prescription opioids. o Never use another person?s prescription opioids. ? Store prescription opioids in a secure place and out of reach of others (this may include visitors, children, friends, and family). ? Safely dispose of unused prescription opioids: Find your community drug take-back program or your pharmacy mail-back program, or flush them down the toilet, following guidance from the Food and Drug Administration (www.fda.gov/Drugs/Re sourcesForYou). ? Visit www.cdc.gov/drugoverd ose to learn about the risks of opioids abuse and overdose. ? If you believe you may be struggling with addiction, tell your health customer care coordinator and ask for guidance or call SAMHSA?S National Helpline at 3-678-574-XBHF. e Source: US Department of Health and Human Services/Center for Disease Control & Prevention [facility] Medications Given: Medication Dose Route No medications found. Medication Information: New Medications Printed Prescriptions acetaminophen-hydroco done (Norcross 325 mg-5 mg oral tablet) 1 Tablets By Mouth every 6 hours as needed for pain. Refills: 0. naproxen (naproxen 500 mg Tab) 1 Tablets By Mouth 2 times a day. with food. Refills: 0. Comment: Pharmacy Information: You may receive a survey from [facility] asking you to rate your care experience. Your feedback is important and will help us understand what we do well and how we can improve the quality of care we provide to you, your loved ones and our community. It?s an honor to serve you. Thank you for choosing [facility] Patient Education Materials: Dental Extraction A dental extraction is the removal (extraction) of a tooth. You may need to have a dental extraction if: ? Your tooth is diseased or damaged and cannot be saved. ? Your mouth needs room for other teeth to grow in or to line up (align) properly. ? You will be having a treatment that requires teeth to be removed to lower the chance of complications. The type and length of the procedure depend on the reason for the extraction and the location of the tooth or teeth. You may have: ? A simple extraction. This is done if the tooth is visible in the mouth and is above the gumline. ? A surgical extraction. This is done if the tooth is below the gumline or if the tooth cannot be extracted by a simple extraction. Depending on the reason for extraction and the location of the tooth or teeth, you may need more surgery to repair the area (reconstructive surgery) after extraction. Tell a health care provider about: ? Any allergies you have, especially to medicines. ? All medicines you are taking, including vitamins, herbs, eye drops, creams, and ctwm-kww-cgmowbh medicines. ? Any problems you or family members have had with anesthetic medicines. ? Any blood disorders you have. ? Any surgeries you have had. ? Any medical conditions you have. ? Whether you are or may be . What are the risks? Generally, this is a safe procedure. However, problems may occur, including: ? Bleeding. ? A blood clot not forming or not staying in place where the tooth was removed. This causes the bones and nerves underneath to be exposed (dry socket). This can be painful and can delay healing. ? Infection. ? Incomplete extraction of the roots of the tooth. ? Jawbone injury, pain, or numbness. ? Temporary or permanent damage to nearby teeth, nerves, tissues, gums, lips, or sinuses. ? Allergic reactions to medicines. What happens before the procedure? Medicines ? You and your dental care provider will discuss the type of medicine that will be used during your procedure. ? Ask your dental care provider about: ? Changing or stopping your regular medicines. This is especially important if you are taking diabetes medicines or blood thinners. ? Taking medicines such as aspirin and ibuprofen. These medicines can thin your blood. Do not take these medicines unless your dental care provider tells you to take them. ? Taking kxjz-fzc-fucfmpo medicines, vitamins, herbs, and supplements. ? You may be given antibiotic medicine to help prevent infection. General instructions ? Do not use any products that contain nicotine or tobacco before your procedure, including cigarettes, chewing tobacco, and e-cigarettes. If you need help quitting, ask your health care provider. ? Your dental care provider will do a complete mouth (oral) exam. This may involve: ? Taking X-rays. ? Making molds of your mouth. ? Follow instructions from your dental care provider about any eating or drinking restrictions. ? Depending on the medicine that will be used during your procedure, you may need to plan to: ? Have someone take you home from the hospital or clinic. ? Have a responsible adult care for you for at least 24 hours after you leave the hospital or clinic. What happens during the procedure? ? To lower your risk of infection, your dental care team will: ? Wash their hands. ? Put on gloves and face masks. ? Clean (sterilize) all surgical instruments. ? You will be positioned in a dental chair. ? An IV may be inserted into one of your veins. ? You will be given one or more of the following: ? A medicine to help you relax (sedative). This may be given by mouth (orally), through a nose mask (nitrous oxide), or through an IV. ? A medicine that is injected near your tooth to numb the area around the tooth (local anesthetic). ? A medicine to make you fall asleep (general anesthetic). ? If necessary, an incision will be made in your gums to allow access to the tooth. ? The tooth will be loosened with a surgical instrument called an elevator. ? If you are having a simple extraction, the tooth will be grasped and removed from its socket using a surgical instrument called forceps. ? If you are having a surgical extraction: ? The tooth may be cut into sections. The sections may be removed with forceps, one at a time. ? Small amounts of bone may be removed to help with the extraction. This may be done if you have a fractured tooth or a permanent tooth that has not come through the gum yet (is impacted, or has not erupted). Material (a graft) may be placed into the socket to replace the removed bone. ? The socket will be washed (irrigated) and cleared out (debrided). ? Medicine may be placed into the socket to help with healing. ? If an incision was made, it will be closed with stitches (sutures). ? Gauze may be placed over the socket to reduce bleeding. The procedure may vary among dental care providers and clinics. What happens after the procedure? ? If you have gauze in your mouth, bite down gently on it to apply pressure. This will help to control bleeding and help a blood clot to form. ? Your blood pressure, heart rate, breathing rate, and blood oxygen level will be monitored until the medicines you were given have worn off. ? You will be given pain medicine as needed. ? You may be prescribed an antibiotic to take at home to prevent infection. ? Do not drive for 24 hours if you were given a sedative during your procedure. Summary ? A dental extraction is the removal (extraction) of a tooth. The type and length of the procedure depend on the reason for the extraction and the location of the tooth or teeth. ? You and your dental care provider will discuss the type of medicine that will be used during your procedure. ? If you have gauze in your mouth after your procedure, bite down gently on it to apply pressure. This will help to control bleeding and help a blood clot to form. ? Do not drive for 24 hours if you were given a sedative during your procedure. This information is not intended to replace advice given to you by your health care provider. Make sure you discuss any questions you have with your health care provider. Document Released: 06/06/2006 Document Revised: 05/19/2018 Document Reviewed: 03/23/2018 [employer] Patient Education ? 2020 [employer] Dental Caries, Adult Dental caries are spots of decay (cavities) in the outer layer of your tooth (enamel). The natural bacteria in your mouth produce acid when breaking down sugary foods and drinks. When you eat or drink a lot of sugary foods and liquids, a lot of acid is produced. The acid destroys the protective enamel of your tooth, leading to tooth decay. It is important to treat your tooth decay as soon as possible. Untreated dental caries can spread decay and lead to painful infection. Brushing regularly with fluoride toothpaste (oral hygiene) and getting regular dental checkups can help prevent dental caries. What are the causes? Dental caries are caused by the acid that is produced when bacteria break down sugary or acidic foods and drinks. What increases the risk? This condition is more likely to develop in young adults. This condition is also more likely to develop in people who: ? Drink a lot of sugary liquids, including alcoholic drinks, such as champagne. ? Eat a lot of sweets and carbohydrates. ? Drink water that is not treated with fluoride. ? Have poor oral hygiene. ? Have deep grooves in their teeth. ? Take certain medicines that decrease saliva. What are the signs or symptoms? Symptoms of dental caries include: ? White, brown, or black spots on the teeth. ? Pain. ? Swollen or bleeding gums. How is this diagnosed? Your dentist may suspect dental caries from your signs and symptoms. The dentist will also do an oral exam. This may include X-rays to confirm the diagnosis. Sometimes lights, a thin probe, and dyes are used to find dental caries (using electrical conductivity or using laser reflection). How is this treated? Treatment for dental caries usually involves a procedure to remove the decay and restore the tooth with a filling or a sealant. Follow these instructions at home: ? Practice good oral hygiene. This keeps your mouth and gums healthy. Use fluoride toothpaste to brush your teeth twice a day, and floss once a day. ? If your dentist prescribed an antibiotic medicine to treat an infection, take it as told by your dentist. Do not stop taking the antibiotic even if your condition improves. ? Keep all follow-up visits as told by your dentist. This is important. This includes all cleanings. How is this prevented? To prevent dental caries: ? [place] your teeth every morning and night with fluoride toothpaste. ? Get regular dental cleanings. ? If you are at risk of dental caries, wash your mouth with prescription mouthwash (chlorhexidine) and apply topical fluoride to your teeth. ? Drink fluoridated water regularly. ? Drink water instead of sugary drinks. ? Eat healthy meals and snacks. Contact a health care provider if: ? You have symptoms of tooth decay. This information is not intended to replace advice given to you by your health care provider. Make sure you discuss any questions you have with your health care provider. Document Released: 02/26/2003 Document Revised: 05/19/2018 Document Reviewed: 12/17/2016 [employer] Patient Education ? 2019 [place]. GARY Elaine SHERRI , have received the following patient education materials/instruction s and have verbalized understanding: Patient Education Materials: Dental Extraction; Dental Caries, Adult Follow-up Instructions: With: Address: When: [facility] [phone] In 3 days 08/10/2020 Comments: You must follow-up with the dentist that is going to perform the procedure, finish the amoxicillin when she started. Use the naproxen for pain, [place] for breakthrough pain. With: Address: When: Dental: [facility] [phone] In 3 days 08/10/2020 With: Address: When: Dental: [facility] [phone] In 3 days 08/10/2020 With: Address: When: Dental: [facility] [phone] In 3 days 08/10/2020 With: Address: When: Theresa Can [facility] Luther Figueroa, Petra C, [facility] [address] [place] [address] Business (1) In 3 days Patient Signature Date Clinician/Nurse Signature Date 08/07/2020 17:30:57 [facility] ED Patient Summary [facility] Emergency Department [address] [place] [address] PATIENT DISCHARGE INSTRUCTIONS Patient Information Name: LANA HURTADO Age: 54 Years Date of : 1965 Reason For Visit: MOUTH PAIN Arrival Time: 08/07/2020 14:29:18 Primary Care Physician: Provider, None Attending Physician: Raj Scott MD Comment: Visit Diagnosis: Diagnoses This Visit No Visit Diagnoses Documented Prescription Information: If you have been given a prescription for narcotics, seek immediate medical attention if you have any difficulty breathing or any sudden status changes such as confusion and sleepiness. If you or anyone you know is experiencing suicidal thoughts, mental health, alcohol and/or drug addiction problems; contact the [facility] 10/01 Crisis Hotline -Text 4HTVH kt 398661. If you received any narcotics, sedation, or any other medication that causes drowsiness for the next 24 hours, unless otherwise directed: ? Do not drive a car. ? Do not operate machinery such as power tools, lawn mowers, drills, sewing machines, or stoves ? Avoid alcoholic beverages and drugs for allergies, nerves, or sleep ? Do not make important personal or business decisions or sign any legal documents Medication Information: The exam and treatment you received today in the [facility] Emergency Department were for an urgent problem and are not intended as complete care. It is important for you to follow up with a doctor, nurse practitioner, or physician?s commercial escrow assistant for ongoing care. If your symptoms become worse or you do not improve as expected and you are unable to reach your usual health care provider, you should return to the Emergency Department, we are available 24 hours a day. For those patients who have received Radiology results, the interpretation of your X-ray as given to you by our Emergency Department physician is only a preliminary report. The Radiologist will review your films and if there is a change in the diagnosis you will be notified by phone. Please make sure you have provided a working phone number so we can reach you if necessary. In the event that you had a lab culture while you were a patient in the Emergency Department, you will be notified by phone if there is a need to change your antibiotic. Please make sure you have provided a working phone number so we can reach you if necessary. [facility] Emergency Department has provided you with a complete list of medications post discharge. Please inform your kinder teacher/provider of your visit and for further instruction on these medications. Any specific questions regarding your chronic medications and dosages should be discussed with your primary care physician(s) and/or pharmacist. Medications to Continue That Have Not Changed Other Medications amoxicillin (amoxicillin 500 mg oral tablet) 1 tab(s) Oral 3 times a day for 10 Days. Refills: 0. busPIRone (busPIRone 5 mg oral tablet) 1 tab(s) Oral 2 times a day. naproxen (Naprosyn 500 mg oral tablet) 1 tab(s) Oral 2 times a day for 10 Days. Refills: 0. sertraline (Zoloft 50 mg oral tablet) 1 tab(s) Oral every day. traZODone (traZODone 50 mg oral tablet) 1 tab(s) Oral once a day (at bedtime) as needed sleep. Visit Information Allergies: Substance Reaction Symptoms Type Comments penicillins Thrush Drug Vital Signs: Vitals and Measurements this Visit (last charted value for your 08/07/2020 visit) No vitals and measurements documented Problems List: Problem Onset Comments No Problems found Patient Education Viruses or Bacteria What?s got you sick? Antibiotics only treat bacterial infections. Viral illnesses cannot be treated with antibiotics. When an antibiotic is not prescribed, ask your healthcare professional for tips on how to relieve symptoms and feel better. Usual Cause Illness Viruses Bacteria Antibiotic Needed Cold/Runny Nose NO Bronchitis/Chest Cold (in otherwise healthy children and adults) NO Whooping Cough Yes Flu NO Strep Throat Yes Sore Throat (except strep) NO Fluid in the middle ear (otitis media with effusion) NO Urinary Tract Infection Yes Antibiotics Aren?t Always the Answer www.cdc.gov/getsmart GET SMART Know When Antibiotics Work U.S[place] Department of Health and Human Services Centers for Disease Control and Prevention February 2014 Normal [facility] ED Patient Summary [facility] ? Urgent Care [address] [place] [address] [id number] PATIENT DISCHARGE INSTRUCTIONS Patient Information Name: LANA HURTADO Age: 54 Years Date of : 1965 Reason For Visit: UC - Dental Pain; DENTAL PAIN Arrival Time: 08/07/2020 13:35:07 Primary Care Physician: Vick, None Attending Physician: Juan Carlos Pratt PA-C Comment: Patient Education With: Address: When: Follow up with specialist Comments: Please follow-up with your dentist in [place], or contact when the dental offices on the dental information sheet that was given to you with your discharge papers, take your amoxicillin and naproxen as prescribed, take trsi-wqp-avkqtdc Tylenol as needed for pain, and return back to the urgent care center for any worsening symptoms, concerns, or complications. With: Address: When: None Provider [address] [place] [address] Acute Pain, Pediatric Acute pain is a type of sudden pain that may last for just a few days or for as long as six months. It is often related to an illness, injury, or medical procedure. Acute pain may be mild, moderate, or severe. It usually goes away once your child's injury has healed or your child is no longer ill. Pain can make it hard for your child to do his or her normal, daily activities. It can cause anxiety and lead to other problems if it is left untreated. Treatment depends on the cause and severity of your child's acute pain. Follow these instructions at home: Medicines ? Treatment should involve the lowest dose of medicine for the shortest amount of time needed to relieve the pain. Give your child xhnx-sjv-wmqhmyz and prescription pain medicines only as told by your child's health care provider. ? Read labels and instructions to make sure your child's dose matches his or her age and weight. ? Follow instructions carefully. Some medicines cannot be chewed, cut, or crushed. ? If your child is taking prescription pain medicine: ? Do not stop giving your child the medicine suddenly. Check with your child's health care provider about how and when to discontinue prescription pain medicine. ? Do not give more medicine than told by your child's health care provider even if your child's pain is severe. ? Do not give other sgvq-ifa-lvrwwdt pain medicines in addition to this medicine unless told by your child's health care provider. ? Ask your child's health care provider if the medicine prescribed to your child can cause constipation. You may need to: ? Have your child drink enough fluid to keep his or her urine pale yellow. ? Give your child fzep-grk-dplvsmg or prescription medicines. ? Have your child eat foods that are high in fiber, such as beans, whole grains, and fresh fruits and vegetables. ? Limit foods in your child's diet that are high in fat and processed sugars, such as fried or sweet foods. Managing pain, stiffness, and swelling If directed, put ice on the affected area. To do this: ? Put ice in a plastic bag. ? Place a towel between your child's skin and the bag. ? Leave the ice on for 20 minutes, 2?3 times a day. If directed, apply heat to the affected area as often as told by your child's health care provider. Use the heat source that your child's health care provider recommends, such as a moist heat pack or a heating pad. ? Place a towel between your child's skin and the heat source. ? Leave the heat on for 20?30 minutes. ? Remove the heat if your child's skin turns bright red. This is especially important if your child is unable to feel pain, heat, or cold. He or she may have a greater risk of getting burned. Activity ? Have your child rest as told by his or her health care provider. ? Have your child return to his or her normal activities as told by his or her health care provider. Ask your child's health care provider what activities are safe for your child. General instructions ? Ask your child's health care provider if other strategies such as distraction, relaxation, or physical therapies will help relieve your child's pain. ? Check your child's pain level as told by your child's health care provider. Ask your child's health care provider if you can use a pain scale to determine your child's pain level. ? Young children can use a rating system with pictures of faces. ? Older children can use a number system to rate their pain. ? Keep all follow-up visits as told by your child's health care provider. This is important. Contact a health care provider if your child: ? Has pain that is not controlled by medicine. ? Has pain that does not improve or gets worse. ? Has side effects from pain medicines, such as vomiting or confusion. Get help right away if your child: ? Has severe pain. ? Has trouble breathing. ? Loses consciousness. These (more content not included)... Normal [facility] [address] Urgent Care Record [facility] ? Urgent Care [address] [place] [address] PATIENT DISCHARGE INSTRUCTIONS Patient Information Name: LANA HURTADO Age: 54 Years Date of : 1965 Reason For Visit: UC - Dental Pain; DENTAL PAIN Arrival Time: 08/07/2020 13:35:07 Primary Care Physician: Provider, None Attending Physician: Juan Carols Pratt PA-C Comment: Visit Diagnosis: Diagnoses This Visit Pain, dental (K08.89) UC - Dental Pain ([id number]) If you received any narcotics, sedation, or any other medication that causes drowsiness for the next 24 hours, unless otherwise directed: ? Do not drive a car. ? Do not operate machinery such as power tools, lawn mowers, drills, sewing machines, or stoves ? Avoid alcoholic beverages and drugs for allergies, nerves, or sleep ? Do not make important personal or business decisions or sign any legal documents With: Address: When: Follow up with specialist Comments: Please follow-up with your dentist in [place], or contact when the dental offices on the dental information sheet that was given to you with your discharge papers, take your amoxicillin and naproxen as prescribed, take urgm-tfv-cwkezxa Tylenol as needed for pain, and return back to the urgent care center for any worsening symptoms, concerns, or complications. With: Address: When: None Provider [address] [place] [address] Medication Information: The exam and treatment you received today in the [facility] were for an urgent problem and are not intended as complete care. It is important for you to follow up with a doctor, nurse practitioner, or physician?s commercial escrow assistant for ongoing care. If your symptoms become worse or you do not improve as expected and you are unable to reach your usual health care provider, you should return to the Emergency Department, we are available 24 hours a day. For those patients who have received Radiology results, the interpretation of your X-ray as given to you by our Urgent Care physician is only a preliminary report. The Radiologist will review your films and if there is a change in the diagnosis you will be notified by phone. Please make sure you have provided a working phone number so we can reach you if necessary. In the event that you had a lab culture while you were a patient in the Urgent Care, you will be notified by phone if there is a need to change your antibiotic. Please make sure you have provided a working phone number so we can reach you if necessary. [facility] has provided you with a complete list of medications post discharge. Please inform your kinder teacher/provider of your visit and for further instruction on these medications. Any specific questions regarding your chronic medications and dosages should be discussed with your primary care physician(s) and/or pharmacist. New Medications [facility], [address], [place] [id number], [phone] amoxicillin (amoxicillin 500 mg oral tablet) 1 tab(s) Oral 3 times a day for 10 Days. Refills: 0. naproxen (Naprosyn 500 mg oral tablet) 1 tab(s) Oral 2 times a day for 10 Days. Refills: 0. Medications to Continue That Have Not Changed Other Medications busPIRone (busPIRone 5 mg oral tablet) 1 tab(s) Oral 2 times a day. sertraline (Zoloft 50 mg oral tablet) 1 tab(s) Oral every day. traZODone (traZODone 50 mg oral tablet) 1 tab(s) Oral once a day (at bedtime) as needed sleep. Visit Information Allergies: Substance Reaction Symptoms Type Comments penicillins Thrush Drug Vital Signs: Vitals and Measurements this Visit (last charted value for your 08/07/2020 visit) Vital Signs This Visit Temperature Oral: 36.9 DegC Peripheral Pulse Rate: 80 bpm Respiratory Rate: 16 br/min Systolic Blood Pressure: 130 mmHg Diastolic Blood Pressure: 60 mmHg Problems List: Problem Onset Comments No Problems found Patient Education Acute Pain, Pediatric Acute pain is a type of sudden pain that may last for just a few days or for as long as six months. It is often related to an illness, injury, or medical procedure. Acute pain may be mild, moderate, or severe. It usually goes away once your child's injury has healed or your child is no longer ill. Pain can make it hard for your child to do his or her normal, daily activities. It can cause anxiety and lead to other problems if it is left untreated. Treatment depends on the cause and severity of your child's acute pain. Follow these instructions at home: Medicines ? Treatment should involve the lowest dose of medicine for the shortest amount of time needed to relieve the pain. Give your child ssqr-qfx-uwdwvrw and prescription pain medicines only as told by your child's health care provider. ? Read labels and instructions to make sure your child's dose matches his or her age and weight. (more content not included)... Normal [facility] CBC auto differentialon 08-18 Basophils (Bld) [#/Vol] 0.00 10*3/uL [place] Basophils/100 WBC (Bld) 0 % 0 - 2 % [place] Differential Type NOT REPORTED [place] Eosinophils (Bld) [#/Vol] 0.30 10*3/uL [place] Eosinophils/100 WBC (Bld) 2 % 0 - 4 % [place] Erythrocyte distribution width (RBC) [Ratio] 14.9 % 11.5 - 14.9 % [place] Hematocrit (Bld) [Volume fraction] 48.0 % High 36 - 46 % [place] Hemoglobin (Bld) [Mass/Vol] 16.0 g/dL 12 - 16 g/dL [place] Interpretation and review of laboratory results Abnormal [place] Lymphocytes (Bld) [#/Vol] 3.40 10*3/uL [place] Lymphocytes/100 WBC (Bld) 32 % 24 - 44 % [place] MCH (RBC) [Entitic mass] 29.5 pg 26 - 34 pg [place] MCHC (RBC) [Mass/Vol] 33.3 g/dL 31 - 37 g/dL [place] MCV (RBC) [Entitic vol] 88.7 fL 80 - 100 fL [place] Monocytes (Bld) [#/Vol] 0.50 10*3/uL [place] Monocytes/100 WBC (Bld) 5 % 1 - 7 % [place] Platelet mean volume (Bld) [Entitic vol] 7.4 fL 6 - 12 fL [place] Platelets (Bld) [#/Vol] NOT REPORTED [place] Platelets (Bld) [#/Vol] 309 10*3/uL [place] RBC (Bld) [#/Vol] 5.41 10*6/uL High 4 - 5.2 m/uL [place] RBC morphology finding Nom (Bld) NOT REPORTED [place] Segmented neutrophils/100 WBC (Bld) 61 % 36 - 66 % [place] Segs Absolute 6.40 [place] WBC (Bld) [#/Vol] 10.6 10*3/uL [place] WBC (Bld) [#/Vol] NOT REPORTED per 100 WBC [place] WBC Morphology NOT REPORTED [place] CBC with Diffon 09-04-2019 Abs. Basophil 0.00 k/uL Normal 0.0-0.2 [facility] Comment on above: Performed By: #### C DP, CMPX, FT4, LIPR, TSH #### [facility] [address] [place] [address] [employer] Surveyor: Alonso Coffman DO #### GLYHGB #### [address] [address] [employer] Surveyor: Abel Hanson MD Abs.Neutrophil (Seg) 6.40 k/uL Normal 1.3-9.1 [facility] Comment on above: Performed By: #### C DP, CMPX, FT4, LIPR, TSH #### [facility] [place] [address] [employer] Surveyor: Alonso Coffman DO #### GLYHGB #### [address] [address] [employer] Surveyor: Abel Hanson MD Basophils/100 WBC (Bld) 0 % Normal 0-2 [facility] Comment on above: Performed By: #### C DP, CMPX, FT4, LIPR, TSH #### [facility] [place] [address] [employer] Surveyor: Alonso Coffman DO #### GLYHGB #### [address] [address] [employer] Surveyor: Abel Hanson MD Eosinophils (Bld) [#/Vol] 0.30 10*3/uL Normal 0.0-0.4 [facility] Comment on above: Performed By: #### C DP, CMPX, FT4, LIPR, TSH #### [facility] [place] [address] [employer]or: Alonso Coffman DO #### GLYHGB #### [address] [address] [employer] Surveyor: Abel Hanson MD Eosinophils/100 WBC (Bld) 2 % Normal 0-4 [facility] Comment on above: Performed By: #### C DP, CMPX, FT4, LIPR, TSH #### [facility] [place] [address] [employer] Surveyor: Alonso Coffman DO #### GLYHGB #### [address] [address] [employer] Surveyor: Abel Hanson MD Erythrocyte distribution width (RBC) [Ratio] 14.9 % Normal 11.5-14.9 [facility] Comment on above: Performed By: #### C DP, CMPX, FT4, LIPR, TSH #### [facility] [address] [place] [address] [employer] Surveyor: Alonso Coffman DO #### GLYHGB #### [address] [address] [employer] Surveyor: Abel Hanson MD Hematocrit (Bld) [Volume fraction] 48.0 % High 36-46 [facility] Comment on above: Performed By: #### C DP, CMPX, FT4, LIPR, TSH #### [facility] [address] [place] [address] [employer] Surveyor: Alonso Coffman DO #### GLYHGB #### [address] [address] [employer] Surveyor: Abel Hanson MD Hemoglobin (Bld) [Mass/Vol] 16.0 g/dL Normal 12.0-16.0 [facility] Comment on above: Performed By: #### C DP, CMPX, FT4, LIPR, TSH #### [facility] [address] [place] [address] [employer]or: Alonso Coffman DO #### GLYHGB #### [address] [address] [employer] Surveyor: Aebl Hanson MD Lymphocytes (Bld) [#/Vol] 3.40 10*3/uL Normal 1.0-4.8 [facility] Comment on above: Performed By: #### C DP, CMPX, FT4, LIPR, TSH #### [facility] [address] [place] [address] [employer] Surveyor: Alonso Coffman DO #### GLYHGB #### [address] [address] [employer] Surveyor: Abel Hanson MD Lymphocytes/100 WBC (Bld) 32 % Normal 24-44 [facility] Comment on above: Performed By: #### C DP, CMPX, FT4, LIPR, TSH #### [facility] [address] [place] [address] [employer] Surveyor: Alonso Coffman DO #### GLYHGB #### [address] [address] [employer] Surveyor: Abel Hanson MD MCH (RBC) [Entitic mass] 29.5 pg Normal 26-34 [facility] Comment on above: Performed By: #### C DP, CMPX, FT4, LIPR, TSH #### [facility] [address] [place] [address] [employer] Surveyor: Alonso Coffman DO #### GLYHGB #### [address] [address] [employer] Surveyor: Abel Hanson MD MCHC (RBC) [Mass/Vol] 33.3 g/dL Normal 31-37 [facility] Comment on above: Performed By: #### C DP, CMPX, FT4, LIPR, TSH #### [facility] [address] [place] [address] [employer] Surveyor: Alonso Coffman DO #### GLYHGB #### [address] [address] [employer] Surveyor: Abel Hanson MD MCV (RBC) [Entitic vol] 88.7 fL Normal 80-100 [facility] Comment on above: Performed By: #### C DP, CMPX, FT4, LIPR, TSH #### [facility] [address] [place] [address] [employer] Surveyor: Alonso Coffman DO #### GLYHGB #### [address] [address] [employer] Surveyor: Abel Hanson MD Monocytes (Bld) [#/Vol] 0.50 10*3/uL Normal 0.1-1.3 [facility] Comment on above: Performed By: #### C DP, CMPX, FT4, LIPR, TSH #### [facility] [address] [place] [address] [employer] Surveyor: Alnoso Coffman DO #### GLYHGB #### [address] [address] [employer] Surveyor: Abel Hanson MD Monocytes/100 WBC (Bld) 5 % Normal 1-7 [facility] Comment on above: Performed By: #### C DP, CMPX, FT4, LIPR, TSH #### [facility] [address] [place] [address] [employer] Surveyor: Alonso Coffman DO #### GLYHGB #### [address] [address] [employer] Surveyor: Abel Hanson MD Neutrophil (Seg) 61 % Normal 36-66 [facility] Comment on above: Performed By: #### C DP, CMPX, FT4, LIPR, TSH #### [facility] [address] [place] [address] [employer] Surveyor: Alonso Coffman DO #### GLYHGB #### [address] [address] [employer] Surveyor: Abel Hanson MD Platelet mean volume (Bld) [Entitic vol] 7.4 fL Normal 6.0-12.0 [facility] Comment on above: Performed By: #### C DP, CMPX, FT4, LIPR, TSH #### [facility] [place] [address] [employer] Surveyor: Alonso Coffman DO #### GLYHGB #### [address] [address] [employer]or: Abel Hanson MD Platelets (Bld) [#/Vol] 309 10*3/uL Normal 150-450 [facility] Comment on above: Performed By: #### C DP, CMPX, FT4, LIPR, TSH #### [facility] [address] [place] [address] [employer]or: Alonso Coffman DO #### GLYHGB #### [address] [address] [employer]or: Abel Hanson MD RBC (Bld) [#/Vol] 5.41 10*6/uL High 4.0-5.2 [facility] Comment on above: Performed By: #### C DP, CMPX, FT4, LIPR, TSH #### [facility] [address] [place] [address] [employer] Surveyor: Alonso Coffman DO #### GLYHGB #### [address] [address] [employer]or: Abel Hanson MD WBC (Bld) [#/Vol] 10.6 10*3/uL Normal 3.5-11.0 [facility] Comment on above: Performed By: #### C DP, CMPX, FT4, LIPR, TSH #### [facility] [address] [place] [address] [employer] Surveyor: Alonso Coffman DO #### GLYHGB #### [address] [address] [employer] Surveyor: Abel Hanson MD Abs.Imm.Granulocyte NOT REPORTED Normal 0.00-0.30 [facility] Comment on above: Performed By: #### C DP, CMPX, FT4, LIPR, TSH #### [facility] [address] [place] [address] [employer] Surveyor: Alonso Coffman DO #### GLYHGB #### [address] [address] [employer]or: Abel Hanson MD Auto Diff Performed NOT REPORTED Normal [facility] Comment on above: Performed By: #### C DP, CMPX, FT4, LIPR, TSH #### [facility] [address] [place] [address] [employer]or: Alonso Coffman DO #### GLYHGB #### [address] [address] [employer] Surveyor: Abel Hanson MD Immature granulocytes (Bld) [#/Vol] NOT REPORTED Normal 0 [facility] Comment on above: Performed By: #### C DP, CMPX, FT4, LIPR, TSH #### [facility] [address] [place] [address] [employer] Surveyor: Alonso Coffman DO #### GLYHGB #### [address] [address] [employer]or: Abel Hanson MD NRBC Automated NOT REPORTED Normal [facility] Comment on above: Performed By: #### C DP, CMPX, FT4, LIPR, TSH #### [facility] [address] [place] [address] [employer]or: Alonso Coffman DO #### GLYHGB #### [address] [address] [employer]or: Abel Hanson MD Platelets (Bld) [#/Vol] NOT REPORTED Normal [facility] Comment on above: Performed By: #### C DP, CMPX, FT4, LIPR, TSH #### [facility] [address] [place] [address] [employer] Surveyor: Alonso Coffman DO #### GLYHGB #### [address] [address] [employer] Surveyor: Abel Hanson MD RBC morphology finding Nom (Bld) NOT REPORTED Normal [facility] Comment on above: Performed By: #### C DP, CMPX, FT4, LIPR, TSH #### [facility] [address] [place] [address] [employer] Surveyor: Alonso Coffman DO #### GLYHGB #### [address] [address] [employer]or: Abel Hanson MD WBC Morphology NOT REPORTED Normal [facility] Comment on above: Performed By: #### C DP, CMPX, FT4, LIPR, TSH #### [facility] [facility] [address] [place] [id number] [employer]or: Alonso Coffman DO #### GLYHGB #### [address] [address] [employer] Surveyor: Aebl Hanson MD Comp Metabolic Pr/rfx MGon 0 09-04-2019 (cont.) Normal [facility] Comment on above: Result Comment: Aver age GFR for 50-59 years old: 93 mL/min/1.73sq m Chronic Kidney Disease: <60 mL/min/1.73sq m Kidney failure: <15 mL/min/1.73sq m eGFR calculated using average adult body mass. Additional eGFR calculator available at: http://www.R17/multiple_crcl_2012.htm Performed By: #### C DP, CMPX, FT4, LIPR, TSH #### [facility] [address] [place] [address] [employer]or: Alonso Coffman DO #### GLYHGB #### [address] [address] [employer] Surveyor: Abel Hanson MD Albumin [Mass/Vol] 4.6 g/dL Normal 3.5-5.2 [facility] Comment on above: Performed By: #### C DP, CMPX, FT4, LIPR, TSH #### [facility] [place] [address] [employer]or: Alonso Coffman DO #### GLYHGB #### [address] [address] [employer] Surveyor: Abel Hanson MD Alkaline Phos 51 U/L Normal 35-104 [facility] Comment on above: Performed By: #### C DP, CMPX, FT4, LIPR, TSH #### [facility] [place] [address] [employer]or: Alonso Coffman DO #### GLYHGB #### [address] [address] [employer] Surveyor: Abel Hanson MD ALT [Catalytic activity/Vol] 12 U/L Normal 5-33 [facility] Comment on above: Performed By: #### C DP, CMPX, FT4, LIPR, TSH #### [facility] [address] [place] [address] [employer]or: Alonso Coffman DO #### GLYHGB #### [address] [address] [employer] Surveyor: Abel Hanson MD Anion gap [Moles/Vol] 13 mmol/L Normal 9-17 [facility] Comment on above: Performed By: #### C DP, CMPX, FT4, LIPR, TSH #### [facility] [address] [place] [address] [employer]or: Alonso Coffman DO #### GLYHGB #### [address] [address] [employer] Surveyor: Abel Hanson MD AST [Catalytic activity/Vol] 15 U/L Normal <32 [facility] Comment on above: Performed By: #### C DP, CMPX, FT4, LIPR, TSH #### [facility] [address] [place] [address] [employer]or: Alonso Coffman DO #### GLYHGB #### [address] [address] [employer] Surveyor: Abel Hanson MD Bilirubin Ql (U) 0.33 mg/dL Normal 0.3-1.2 [facility] Comment on above: Performed By: #### C DP, CMPX, FT4, LIPR, TSH #### [facility] [address] [place] [address] [employer]or: Alonso Coffman DO #### GLYHGB #### [address] [address] [employer]or: Abel Hanson MD Calcium [Mass/Vol] 9.3 mg/dL Normal 8.6-10.4 [facility] Comment on above: Performed By: #### C DP, CMPX, FT4, LIPR, TSH #### [facility] [address] [place] [address] [employer]or: Alonso Coffman DO #### GLYHGB #### [address] [address] [employer] Surveyor: Abel Hanson MD Chloride [Moles/Vol] 104 mmol/L Normal 98-107 [facility] Comment on above: Performed By: #### C DP, CMPX, FT4, LIPR, TSH #### [facility] [address] [place] [address] [employer]or: Alonso Coffman DO #### GLYHGB #### [address] [address] [employer] Surveyor: Abel Hanson MD CO2 [Moles/Vol] 23 mmol/L Normal 20-31 [facility] Comment on above: Performed By: #### C DP, CMPX, FT4, LIPR, TSH #### [facility] [address] [place] [address] [employer]or: Alonso Coffman DO #### GLYHGB #### [address] [address] [employer] Surveyor: Abel Hanson MD Creatinine [Mass/Vol] 0.65 mg/dL Normal 0.50-0.90 [facility] Comment on above: Performed By: #### C DP, CMPX, FT4, LIPR, TSH #### [facility] [address] [place] [address] [employer]or: Alonso Coffman DO #### GLYHGB #### [address] [address] [employer] Surveyor: Abel Hanson MD GFR, Amer >60 Normal >60 [facility] Comment on above: Performed By: #### C DP, CMPX, FT4, LIPR, TSH #### [facility] [address] [place] [address] [employer]or: Alonso Coffman DO #### GLYHGB #### [address] [address] [employer]or: Abel Hanson MD GFR,non Amer >60 Normal >60 [facility] Comment on above: Performed By: #### C DP, CMPX, FT4, LIPR, TSH #### [facility] [address] [place] [address] [employer]or: Alonso Coffman DO #### GLYHGB #### [address] [address] [employer]or: Abel Hanson MD Glucose [Mass/Vol] 167 mg/dL High 70-99 [facility] Comment on above: Performed By: #### C DP, CMPX, FT4, LIPR, TSH #### [facility] [address] [place] [address] [employer]or: Alonso Coffman DO #### GLYHGB #### [address] [address] [employer] Surveyor: Abel Hanson MD Potassium [Moles/Vol] 4.3 mmol/L Normal 3.7-5.3 [facility] Comment on above: Performed By: #### C DP, CMPX, FT4, LIPR, TSH #### [facility] [address] [place] [address] [employer]or: Alonso Coffman DO #### GLYHGB #### [address] [address] [employer]or: Abel Hanson MD Protein [Mass/Vol] 6.7 g/dL Normal 6.4-8.3 [facility] Comment on above: Performed By: #### C DP, CMPX, FT4, LIPR, TSH #### [facility] [address] [place] [address] [employer]or: Alonso Coffman DO #### GLYHGB #### [address] [address] [employer]or: Abel Hanson MD Sodium [Moles/Vol] 140 mmol/L Normal 135-144 [facility] Comment on above: Performed By: #### C DP, CMPX, FT4, LIPR, TSH #### [facility] [address] [place] [address] [employer]or: Alonso Coffman DO #### GLYHGB #### [address] [address] [employer] Surveyor: Abel Hanson MD Urea nitrogen [Mass/Vol] 14 mg/dL Normal 6-20 [facility] Comment on above: Performed By: #### C DP, CMPX, FT4, LIPR, TSH #### [facility] [address] [place] [address] [employer]or: Alonso Coffman DO #### GLYHGB #### [address] [address] [employer]or: Abel Hanson MD Albumin/Globulin [Mass ratio] NOT REPORTED Normal 1.0-2.5 [facility] Comment on above: Performed By: #### C DP, CMPX, FT4, LIPR, TSH #### [facility] [address] [place] [address] [employer]or: Alonso Coffman DO #### GLYHGB #### [facility] [address] [place] [address] [employer]or: Abel Hanson MD BUN/CRE Ratio NOT REPORTED Normal 9-20 [facility] Comment on above: Performed By: #### C DP, CMPX, FT4, LIPR, TSH #### [facility] [address] [place] [address] [employer]or: Alonso Coffman DO #### GLYHGB #### [facility] [address] [place], [place] [id number] [employer]or: Abel Hanson MD Staging: NOT REPORTED Normal [facility] Comment on above: Performed By: #### C DP, CMPX, FT4, LIPR, TSH #### [facility] [address] [place] [address] [employer]or: Alonso Coffman DO #### GLYHGB #### [facility] [address] [place] [address] [employer]or: Abel Hanson MD Comprehensive Metabolic Pane l w/ Reflex to MGon 09-04-2019 Albumin [Mass/Vol] 4.6 g/dL 3.5 - 5.2 g/dL [place] Albumin/Globulin [Mass ratio] NOT REPORTED [place] ALP [Catalytic activity/Vol] 51 U/L 35 - 104 U/L [place] ALT [Catalytic activity/Vol] 12 U/L 5 - 33 U/L [place] Anion gap [Moles/Vol] 13 mmol/L 9 - 17 mmol/L [place] AST [Catalytic activity/Vol] 15 U/L <32 [place] Bilirubin Ql (U) 0.33 mg/dL 0.3 - 1.2 mg/dL [place] Bun/Cre Ratio NOT REPORTED [facility] [place] Calcium [Mass/Vol] 9.3 mg/dL 8.6 - 10. 4 mg/dL [place] Chloride [Moles/Vol] 104 mmol/L 98 - 10 7 mmol/L [place] CO2 [Moles/Vol] 23 mmol/L 20 - 31 mmol/L [place] Creatinine [Mass/Vol] 0.65 mg/dL 0.5 - 0.9 mg/dL [place] GFR >60 >60 mL/min [place] GFR Non- >60 >60 mL/min [place] GFR/1.73 sq M predicted among non-blacks MDRD (S/P/Bld) [Vol rate/Area] NOT REPORTED [place] GFR/1.73 sq M predicted among non-blacks MDRD (S/P/Bld) [Vol rate/Area] [place] Comment on above: Average GFR for 50-5 9 years old: 93 mL/min/1.73sq m Chronic Kidney Disease: <60 mL/min/1.73sq m Kidney failure: <15 mL/min/1.73sq m eGFR calculated using average adult body mass. Additional eGFR calculator available at: http://www.R17/multiple_crcl_2012.htm Glucose [Mass/Vol] 167 mg/dL High 70 - 99 mg/dL [place] Potassium [Moles/Vol] 4.3 mmol/L 3.7 - 5.3 mmol/L [place] Protein [Mass/Vol] 6.7 g/dL 6.4 - 8.3 g/dL [place] Sodium [Moles/Vol] 140 mmol/L 135 - 144 mmol/L [place] Urea nitrogen [Mass/Vol] 14 mg/dL 6 - 20 mg/dL [place] DRUG SCREEN MULTI URINEon Amphetamine Screen, Ur Negative NEGATIVE [place] Comment on above: (Positive cutoff 1000 ng/mL) Barbiturate Screen, Ur Negative NEGATIVE [place] Comment on above: (Positive cutoff 200 ng/mL) Benzodiazepine Screen, Urine Negative NEGATIVE [place] Comment on above: (Positive cutoff 200 ng/mL) Buprenorphine Urine NOT REPORTED NEGATIVE [place] Cannabinoid Scrn, Ur Positive Abnormal NEGATIVE [place] Comment on above: (Positive cutoff 50 ng/mL) Cocaine Metabolite, Urine Negative NEGATIVE [place] Comment on above: (Positive cutoff 300 ng/mL) Interpretation and review of laboratory results Abnormal [place] MDMA, Urine NOT REPORTED NEGATIVE [place] Methadone Screen, Urine Negative NEGATIVE [place] Comment on above: (Positive cutoff 300 ng/mL) Methamphetamine, Urine NOT REPORTED NEGATIVE [place] Opiates, Urine Negative NEGATIVE [place] Comment on above: (Positive cutoff 300 ng/mL) Oxycodone Screen, Ur Negative NEGATIVE [place] Comment on above: (Positive cutoff 100 ng/mL) Phencyclidine, Urine Negative NEGATIVE [place] Comment on above: (Positive cutoff 25 ng/mL) Propoxyphene, Urine NOT REPORTED NEGATIVE [place] Test Information Assay provides medical screening only. The absence of expected drug(s) and/or metabolite(s) may indicate diluted or adulterated urine, limitations of testing or timing of collection. [place] Comment on above: Testing for legal pu rposes should be confirmed by another method. To request confirmation of test result, please call the lab within 7 days of sample submission. Tricyclic Antidepressants, Urine NOT REPORTED NEGATIVE [place] Drug Scr, Abuse, Uron 2019 Amphetamine(s),Ur Negative Normal NEG [facility] Comment on above: Result Comment: (Positive cutoff 1000 ng/mL) Performed By: #### D AU #### [facility] [address] [place] [address] [employer] Surveyor: Alonso Coffman DO Barbiturate(s),Ur Negative Normal NEG [facility] Comment on above: Result Comment: (Positive cutoff 200 ng/mL) Performed By: #### D AU #### [facility] [address] [place] [address] [employer] Surveyor: Alonso Coffman DO Base excess Calc (Bld) [Moles/Vol] Negative Normal NEG [facility] Comment on above: Result Comment: (Positive cutoff 300 ng/mL) Performed By: #### D AU #### [facility] [address] [place] [address] [employer] Surveyor: Alonso Coffman DO Benzodiazepine(s) Negative Normal NEG [facility] Comment on above: Result Comment: (Positive cutoff 200 ng/mL) Performed By: #### D AU #### [facility] [address] [place] [address] [employer] Surveyor: Alonso Coffman DO Cannabinoid(s),Ur Positive Abnormal NEG [facility] Comment on above: Result Comment: (Positive cutoff 50 ng/mL) Performed By: #### D AU #### [facility] [address] [place] [address] [employer] Surveyor: Alonso Coffman DO Interpretive Info Assay provides medical screening only. The absence of expected drug(s) and/or Normal [facility] Comment on above: Result Comment: meta bolite(s) may indicate diluted or adulterated urine, limitations of testing or timing of collection. Testing for legal purposes should be confirmed by another method. To request confirmation of test result, please call the lab within 7 days of sample submission. Performed By: #### D AU #### [facility] [address] [place] [address] [employer] Surveyor: Alonso Coffman DO Methadone Ql (U) Negative Normal NEG [facility] Comment on above: Result Comment: (Positive cutoff 300 ng/mL) Performed By: #### D AU #### [facility] [address] [place] [address] [employer] Surveyor: Alonso Coffman DO Opiate(s), Ur Negative Normal NEG [facility] Comment on above: Result Comment: (Positive cutoff 300 ng/mL) Performed By: #### D AU #### [facility] [address] [place] [address] [employer] Surveyor: Alonso Coffman DO Oxycodone, Urine Negative Normal NEG [facility] Comment on above: Result Comment: (Positive cutoff 100 ng/mL) Performed By: #### D AU #### [facility] [address] [place] [address] [employer]or: Alonso Coffman DO Phencyclidine, Ur Negative Normal NEG [facility] Comment on above: Result Comment: (Positive cutoff 25 ng/mL) Performed By: #### D AU #### [facility] [address] [place] [address] [employer] Surveyor: Alonso Coffman DO Buprenorphrine, Ur NOT REPORTED Normal NEG [facility] Comment on above: Performed By: #### D AU #### [facility] [address] [place] [address] [employer] Surveyor: Alonso Coffman DO MDMA, Urine NOT REPORTED Normal NEG [facility] Comment on above: Performed By: #### D AU #### [facility] [address] [place] [address] [employer] Surveyor: Alonso Coffman DO Methamphetamine, Ur NOT REPORTED Normal NEG [facility] Comment on above: Performed By: #### D AU #### [facility] [address] [place] [address] [employer] Surveyor: Alonso Coffman DO Propoxyphene,Urine NOT REPORTED Normal NEG [facility] Comment on above: Performed By: #### D AU #### [facility] [address] [place] [address] [employer] Surveyor: Alonso Coffman DO Tricyclic antidepressants Screen Ql (U) NOT REPORTED Normal NEG [facility] Comment on above: Performed By: #### D AU #### [facility] [address] [place] [address] [employer]or: Alonso Coffman DO Hemoglobin A1Con 09-04-2019 HbA1c (Bld) [Mass fraction] 128 mg/dL Normal [facility] Comment on above: Result Comment: The ADA and AACC recommend providing the estimated average glucose result to permit better patient understanding of their HBA1c result. Performed By: #### C DP, CMPX, FT4, LIPR, TSH #### [facility] [address] [place] [address] [employer] Surveyor: Alonso Coffman DO #### GLYHGB #### [address] [address] [employer] Surveyor: Abel Hanson MD HbA1c (Bld) [Mass fraction] 6.1 % High 4.0-6.0 [facility] Comment on above: Performed By: #### C DP, CMPX, FT4, LIPR, TSH #### [facility] [place] [address] [employer] Surveyor: Alonso Coffman DO #### GLYHGB #### [address] [address] [employer] Surveyor: Abel Hanson MD Hemoglobin A1con 09-04-2019 Glucose [Mass/Vol] 128 mg/dL [place] Comment on above: The ADA and AACC rec ommend providing the estimated average glucose result to permit better patient understanding of their HBA1c result. HbA1c (Bld) [Mass fraction] 6.1 % High 4 - 6 % [place] Interpretation and review of laboratory results Abnormal [place] Lipid Profileon 09-04-2019 Cholesterol [Mass/Vol] 218 mg/dL High <200 [facility] Comment on above: Result Comment: Cholesterol Guidelines: <200 Desirable 200-240 Borderline >240 Undesirable Performed By: #### C DP, CMPX, FT4, LIPR, TSH #### [facility] [address] [place] [address] [employer]or: Alonso Coffman DO #### GLYHGB #### [address] [address] [employer] Surveyor: Abel Hanson MD Cholesterol in HDL [Mass/Vol] 74 mg/dL Normal >40 [facility] Comment on above: Result Comment: HDL Guidelines: <40 Undesirable 40-59 Borderline >59 Desirable Performed By: #### C DP, CMPX, FT4, LIPR, TSH #### [facility] [address] [place] [address] [employer] Surveyor: Alonso Coffman DO #### GLYHGB #### [address] [address] [employer] Surveyor: Abel Hanson MD Cholesterol in LDL [Mass/Vol] 113 mg/dL Normal 0-130 [facility] Comment on above: Result Comment: LDL Guidelines: <100 Desirable 100-129 Near to/above Desirable 130-159 Borderline >159 Undesirable Direct (measured) LDL and calculated LDL are not interchangeable tests. Performed By: #### C DP, CMPX, FT4, LIPR, TSH #### [facility] [address] [place] [address] [employer] Surveyor: Alonso Coffman DO #### GLYHGB #### [address] [address] [employer] Surveyor: Abel Hanson MD Cholesterol.total/Cho lesterol in HDL [Mass ratio] 2.9 {ratio} Normal <5 [facility] Comment on above: Performed By: #### C DP, CMPX, FT4, LIPR, TSH #### [facility] [address] [place] [address] [employer] Surveyor: Alonso Coffman DO #### GLYHGB #### [address] [address] [employer] Surveyor: Abel Hanson MD Triglyceride [Mass/Vol] 153 mg/dL High <150 [facility] Comment on above: Result Comment: Triglyceride Guidelines: <150 Desirable 150-199 Borderline 200-499 High >499 Very high Based on AHA Guidelines for fasting triglyceride, March 2012. Performed By: #### C DP, CMPX, FT4, LIPR, TSH #### [facility] [address] [place] [address] [employer] Surveyor: Alonso Coffman DO #### GLYHGB #### [address] [address] [employer] Surveyor: Abel Hanson MD Cholesterol in VLDL [Mass/Vol] NOT REPORTED Normal 07-19 [facility] Comment on above: Performed By: #### C DP, CMPX, FT4, LIPR, TSH #### [facility] [address] [place] [address] [employer] Surveyor: Alonso Coffman DO #### GLYHGB #### [address] [address] [employer] Surveyor: Abel Hanson MD Lipid panel - fastingon 08-18 Cholesterol [Mass/Vol] 218 mg/dL High <200 [place] Comment on above: Cholesterol Guidelines: <200 Desirable 200-240 Borderline >240 Undesirable Cholesterol in HDL [Mass/Vol] 74 mg/dL >40 [place] Comment on above: HDL Guidelines: <40 Undesirable 40-59 Borderline >59 Desirable Cholesterol in LDL [Mass/Vol] 113 mg/dL 0 - 130 mg/dL [place] Comment on above: LDL Guidelines: <100 Desirable 100-129 Near to/above Desirable 130-159 Borderline >159 Undesirable Direct (measured) LDL and calculated LDL are not interchangeable tests. Cholesterol in VLDL [Mass/Vol] NOT REPORTED High 1 - 30 mg/dL [place] Cholesterol.total/Cho lesterol in HDL [Mass ratio] 2.9 {ratio} <5 [place] Triglyceride [Mass/Vol] 153 mg/dL High <150 [place] Comment on above: Triglyceride Guidelines: <150 Desirable 150-199 Borderline 200-499 High >499 Very high Based on AHA Guidelines for fasting triglyceride, March 2012. Otheron 09-04-2019 Interpretation and review of laboratory results Abnormal [place] Immature granulocytes (Bld) [#/Vol] NOT REPORTED [place] T4, freeon 09-04-2019 Thyroxine, Free 1.09 ng/dL 0.93 - 1.7 ng/dL [place] TSH without Reflexon 020 TSH Qn 1.23 m[IU]/L [place] Thyroid Stim. Horm.on 2019 TSH Qn 1.23 m[IU]/L Normal 0.30-5.00 [facility] Comment on above: Performed By: #### C DP, CMPX, FT4, LIPR, TSH #### [facility] [address] [facility] [place] [address] [employer]or: Alonso Coffman DO #### GLYHGB #### [facility] [employer] [address] [place] [id number] [employer]or: Abel Hanson MD Thyroxine, Freeon 09-04-2019 Thyroxine, Free 1.09 ng/dL Normal 0.93-1.70 [facility] Comment on above: Performed By: #### C DP, CMPX, FT4, LIPR, TSH #### [facility] [address] [place] [address] [employer]or: Alonso Coffman DO #### GLYHGB #### [facility] [place] [id number] [employer] Surveyor: Abel Hanson MD Vital Signs Date Time Vital Sign Value Performing Clinician Facility 07-30-2024 11:12-0500 Body height 157.[address] [facility] 07-30-2024 11:12-0500 Body mass index (BMI) [Ratio] 21.4 kg/m2 [facility] 07-30-2024 11:12-0500 Body weight 53.[address] [facility] 07-30-2024 11:12-0500 Diastolic blood pressure 84 mm[Hg] [facility] 07-30-2024 11:12-0500 Heart rate 75 /min [facility] 07-30-2024 11:12-0500 Respiratory rate 20 /min [facility] 07-30-2024 11:12-0500 SaO2% (BldA) [Mass fraction] 97 % [facility] 07-30-2024 11:12-0500 Systolic blood pressure 127 mm[Hg] [facility] 07-25-2024 10:11-0500 Body height 157.5 cm Mukund-Michael Vu DO Work Phone: [facility] 07-25-2024 10:11-0500 Body mass index (BMI) [Ratio] 21.4 kg/m2 Mukund-Michael Vu DO Work Phone: [facility] 07-25-2024 10:11-0500 Body temperature 97.9 [degF] Mukund-Michael Vu DO Work Phone: [facility] 07-25-2024 10:11-0500 Body weight 53.07 kg Mukund-Michael Vu DO Work Phone: [facility] 04-11-2024 11:00-0400 Body height 157.5 cm Mukund-Michael Vu DO [facility] [facility] 04-11-2024 11:00-0400 Body mass index (BMI) [Ratio] 21.47 kg/m2 Mukund-Michael Vu DO Work Phone: [facility] 04-11-2024 11:00-0400 Body temperature 98.01 [degF] Mukund-Michael Vu DO Work Phone: [facility] 04-11-2024 11:00-0400 Body weight 53.25 kg Mukund-Michael Vu DO Work Phone: [facility] 01-23-2024 12:53-0400 Body height 157.48 cm [facility] Work Phone: [facility] 01-23-2024 12:53-0400 Body mass index (BMI) [Ratio] 21.4 kg/m2 [facility] Work Phone: [facility] 01-23-2024 12:53-0400 Body weight 53.07 kg [facility] Work Phone: [facility] 01-23-2024 12:53-0400 Diastolic blood pressure 82 mm[Hg] [facility] Work Phone: [facility] 01-23-2024 12:53-0400 Heart rate 67 /min [facility] Work Phone: [facility] 01-23-2024 12:53-0400 Respiratory rate 20 /min [facility] Work Phone: [facility] 01-23-2024 12:53-0400 SaO2% (BldA) [Mass fraction] 98 % [facility] Work Phone: [facility] 01-23-2024 12:53-0400 Systolic blood pressure 140 mm[Hg] [facility] Work Phone: [facility] 12-28-2023 10:39-0400 Body height 157.5 cm Mukund-Michael Vu DO Work Phone: [facility] [employer] [facility] 12-28-2023 10:39-0400 Body mass index (BMI) [Ratio] 21.69 kg/m2 Mukund-Michael Vu DO Work Phone: [facility] [employer] [facility] 12-28-2023 10:39-0400 Body temperature 97.9 [degF] Mukund-Michael Vu DO Work Phone: [facility] [employer] [facility] 12-28-2023 10:39-0400 Body weight 53.8 kg Mukund-Michael Vu DO Work Phone: [facility] 12-05-2023 09:40-0400 Diastolic blood pressure 81 mm[Hg] [facility] Work Phone: [facility] 12-05-2023 09:40-0400 Heart rate 74 /min [facility] Work Phone: [facility] 12-05-2023 09:40-0400 Respiratory rate 18 /min [facility] Work Phone: [facility] 12-05-2023 09:40-0400 SaO2% (BldA) [Mass fraction] 96 % [facility] Work Phone: [facility] 12-05-2023 09:40-0400 Systolic blood pressure 123 mm[Hg] [facility] Work Phone: [facility] 12-05-2023 07:24-0400 Body height 157.48 cm [facility] Work Phone: [facility] 12-05-2023 07:24-0400 Body temperature 98.4 [degF] [facility] Work Phone: [facility] 12-05-2023 07:24-0400 Body weight 54.4 kg [facility] Work Phone: [facility] 11-15-2023 11:52-0400 Body height 157.[address] [facility] 11-15-2023 11:52-0400 Body mass index (BMI) [Ratio] 21.7 kg/m2 [facility] 11-15-2023 11:52-0400 Body temperature 97.4 [degF] [facility] 11-15-2023 11:52-0400 Body weight 53.[address] [facility] 11-15-2023 11:52-0400 Diastolic blood pressure 86 mm[Hg] [facility] 11-15-2023 11:52-0400 Heart rate 76 /min [facility] 11-15-2023 11:52-0400 Respiratory rate 20 /min [facility] 11-15-2023 11:52-0400 SaO2% (BldA) [Mass fraction] 97 % [facility] 11-15-2023 11:52-0400 Systolic blood pressure 125 mm[Hg] [facility] 12-17-2021 11:00-0400 Body height 157.48 cm Maria R Martin Other [facility] Other 12-17-2021 11:00-0400 Body mass index (BMI) [Ratio] 17.85 kg/m2 Maria R Martin Other [facility] Other 12-17-2021 11:00-0400 Body temperature 97.6 [degF] Maria R Martin Other [facility] Other 12-17-2021 11:00-0400 Body weight 44.27 kg Maria R Martin Other [employer] Other 12-17-2021 11:00-0400 Diastolic blood pressure 90 mm[Hg] Maria R Martin Other [facility] Other 12-17-2021 11:00-0400 Respiratory rate 20 /min Maria R Martin Other [employer] [facility] [employer] Other 12-17-2021 11:00-0400 SaO2% (BldA) [Mass fraction] 98 % Maria R Martin Other [employer] [facility] [employer] Other 12-17-2021 11:00-0400 Systolic blood pressure 132 mm[Hg] Maria R Martin Other [facility] [employer] Other 09-08-2021 14:25-0400 Body temperature 98 [degF] [facility] Work Phone: [facility] 09-08-2021 14:25-0400 Heart rate 73 /min [facility] Work Phone: [facility] 09-08-2021 14:25-0400 Respiratory rate 22 /min [facility] Work Phone: [facility] 09-08-2021 14:25-0400 SaO2% (BldA) [Mass fraction] 97 % [facility] Work Phone: [facility] 09-08-2021 13:15-0400 Body height 157.48 cm [facility] Work Phone: [facility] 09-08-2021 13:15-0400 Body mass index (BMI) [Ratio] 19.2 kg/m2 [facility] Work Phone: [facility] 09-08-2021 13:15-0400 Body weight 47.62 kg [facility] Work Phone: [facility] 09-08-2021 13:15-0400 Diastolic blood pressure 82 mm[Hg] [facility] Work Phone: [facility] 09-08-2021 13:15-0400 Systolic blood pressure 122 mm[Hg] [facility] Work Phone: [facility] 09-05-2019 07:45-0400 Body Temperature 97.81 [degF] [facility] [place] [place] [facility] 07:45-0400 BP Diastolic 77 mm[Hg] [facility] [place] [facility] [place] 09-05-2019 07:45-0400 BP Systolic 125 mm[Hg] [facility] [place] 09-05-2019 07:45-0400 Pulse (Heart Rate) 88 /min [facility] [place] 09-05-2019 07:45-0400 Respiratory Rate 14 /min [facility] [place] 09-03-2019 01:20-0400 BMI (Body Mass Index) 17.56 kg/m2 [facility] [place] 09-03-2019 01:20-0400 Body weight 43.55 kg [facility] [place] , [place] 09-03-2019 01:20-0400 Height 157.5 cm [facility] [place] , [place] 09-03-2019 01:20-0400 Pulse Oximetry 100 % [facility] [place] , [place] Encounters Encounter Date Encounter Type Care Provider Facility Start: 07-30-2024 End: 07-30-2024 ambulatory [facility] Work Phone: Start: 07-30-2024 End: 07-30-2024 Patient encounter procedure [facility] Work Phone: Start: 07-25-2024 End: 07-25-2024 Office outpatient visit 15 minutes Mukund-Michael Vu DO Work Phone: [facility] Comment on above: Otitis media with ef fusion, right (Primary Dx); ETD (Eustachian tube dysfunction), bilateral; Dysphagia, unspecified type; Current smoker Start: 07-25-2024 End: 07-25-2024 [facility] Comment on above: Other specified diso rders of eustachian tube, bilateral (Primary Dx) Start: 04-11-2024 End: 04-11-2024 Patient encounter procedure Mukund-Michael Vu DO Work Phone: [facility] Comment on above: Sensation of fullnes s in both ears (Primary Dx); Dysfunction of both eustachian tubes; Hoarseness; Dysphagia, unspecified type; Current smoker Start: 04-11-2024 End: 04-11-2024 ambulatory [employer] [facility] [facility] [employer] Comment on above: Other specified diso rders of eustachian tube, bilateral (Primary Dx) Start: 01-23-2024 End: 01-23-2024 ambulatory [facility] Work Phone: [facility] Work Phone: Start: 01-23-2024 End: 01-23-2024 Patient encounter procedure [facility] Work Phone: [facility] Pulmonary Disease Work Phone: Start: 12-28-2023 End: 12-28-2023 Patient encounter procedure [employer] DO Work Phone: [facility] Comment on above: Dysphonia (Primary D x); Dysphagia, unspecified type; Sensorineural hearing loss (SNHL) of both ears; ETD (Eustachian tube dysfunction), right; Nasal deviation; Regurgitation of food; PND (post-nasal drip); Current smoker Start: 12-28-2023 End: 12-28-2023 ambulatory [employer] [facility] Comment on above: Sensation of fullnes s in right ear (Primary Dx); Other specified disorders of eustachian tube, right ear Start: 12-05-2023 Non-patient / Non-visit [facility] Work Phone: [facility] Gastroenterology Work Phone: Start: 12-05-2023 End: 12-05-2023 Admission to same day surgery center [facility] Work Phone: [facility] Work Phone: Start: 12-05-2023 End: 12-05-2023 ambulatory [facility] Work Phone: [facility] Work Phone: Start: 12-02-2023 End: 12-02-2023 Patient encounter procedure [facility] Work Phone: [facility] Work Phone: Start: 12-02-2023 End: 12-02-2023 ambulatory [facility] Work Phone: [facility] Work Phone: Start: 11-15-2023 End: 11-15-2023 ambulatory [facility] Work Phone: Start: 11-15-2023 End: 11-15-2023 Patient encounter procedure [facility] Pul[facility] Disease Work Phone: Start: 06-02-2023 End: 06-02-2023 Emergency department patient visit [facility] Work Phone: [facility] Work Phone: Start: 09-17-2022 End: 09-17-2022 ambulatory Imad Asaad Other [employer] Other Start: 09-17-2022 Telephone encounter Imad Asaad [facility] Start: 12-31-2021 End: 12-31-2021 ambulatory Maria R Martin Other [employer] Other Start: 12-31-2021 Telephone encounter Maria R Martin [facility] Start: 12-17-2021 End: 12-17-2021 ambulatory Maria R Martin Other [employer] Other Start: 12-17-2021 Office outpatient ne w 45 minutes Maria R Martin [facility] Start: 12-15-2021 End: 12-15-2021 Patient encounter procedure [facility] Work Phone: [facility] Start: 09-08-2021 End: 09-08-2021 Emergency department [facility] Work Phone: [facility] Start: 09-07-2021 End: 09-07-2021 Patient encounter procedure [facility] Work Phone: [facility] Start: 09-03-2019 End: 09-05-2019 [facility] Start: 09-02-2019 Patient encounter procedure [facility] [place], [place] Procedures Date Procedure Procedure Detail Performing Clinician Start: 04-11-2024 Follow-up visit Follow-up RAHEL DELGADILLO Start: 12-05-2023 Screening colonoscopy E denisse [facility] Work Phone: Start: 12-02-2023 Screening mammograph y of bilateral breasts [facility] Work Phone: Start: 09-08-2021 Plain chest X-ray On[facility] Work Phone: Start: 09-07-2021 Ultrasonography of b ilateral breasts [facility] Work Phone: Start: 09-05-2019 DISCHARGE PATIENT HERNAN PERES Start: 09-04-2019 DIETARY NUTRITION SUPPLEMENTS [facility] Start: 09-04-2019 Drug screen class list [facility] Start: 09-04-2019 Drug screen class list a Selin Santos Work Phone: Start: 09-04-2019 Assay of free thyroxine [facility] Start: 09-04-2019 Assay of thyroid sti mulating hormone tsh [facility] Start: 09-04-2019 Blood count complete auto&auto difrntl wbc [facility] Start: 09-04-2019 Hemoglobin glycosylated a1c [facility] Start: 09-04-2019 Lipid panel GRAYSON PERES Start: 09-04-2019 Assay of free thyroxine Selin Santos Work Phone: Start: 09-04-2019 Assay of thyroid sti mulating hormone tsh Selin Santos Work Phone: Start: 09-04-2019 Blood count complete auto&auto difrntl wbc Selin Santos Work Phone: Start: 09-04-2019 Hemoglobin glycosylated a1c Selin Santos Work Phone: Start: 09-04-2019 Lipid panel Selin Santos Work Phone: Start: 09-04-2019 MONITOR [facility]ANESH ANTOLIN[facility] Start: 09-03-2019 DIET GENERAL FORTINOGANESH ANTOLINIAM Start: 09-03-2019 IP CONSULT TO HOSPITALIST GRAYSON SAMS Start: 09-03-2019 TOBACCO CESSATION EDUCATION [facility] Start: 09-03-2019 VITAL SIGNS [facility] Start: 09-03-2019 FULL CODE GRAYSON PERES Start: 09-03-2019 IP CONSULT TO HISTOR Y AND PHYSICAL [facility] Start: 09-03-2019 PATIENT MONITORING C LOSE Q 15 MINUTES [facility] Start: 09-03-2019 PATIENT STATUS (FROM ED OR OR/PROCEDURAL) GRAYSON DANGELOIAM Plan of Treatment Date Care Activity Detail Author Start: 07-25-2025 Adult BMI Screening Adult BMI Screen ing [facility] Start: 07-25-2025 Tobacco Screening Tobacco Screening [facility] Start: 04-11-2025 Adult BMI Screening Adult BMI Screen ing [facility] Start: 04-11-2025 Tobacco Screening Tobacco Screening [facility] Start: 02-25-2025 Tobacco Screening Tobacco Screening [facility] Start: 12-27-2024 Adult BMI Screening Adult BMI Screen ing [facility] Start: 12-27-2024 Tobacco Screening Tobacco Screening [facility] Start: 10-31-2024 End: 10-31-2024 Patient encounter procedure 10/31/2024 11:30 AM EDT Office Visit [facility] [address] [place] [address] Mukund Delgadillo-[facility], [address] [place] [address] [facility] Start: 07-25-2024 End: 07-25-2024 Clinical Support [facility] Start: 04-11-2024 End: 04-11-2024 Clinical Support [facility] Start: 02-19-2024 COVID-19 Vaccine () COVID-19 Vaccine () [facility] Start: 02-19-2024 COVID-19 Vaccine () COVID-19 Vaccine () [facility] Start: 02-19-2024 Influenza vaccination Influenza Vacc ine [facility] Start: 12-28-2023 End: 12-27-2024 RF Esophagus Views W contrast PO Fluoroscopy esophagus Imaging Routine Dysphagia, unspecified type Regurgitation of food Expected: 12/28/2023, Expires: 12/27/2024 [facility] Work Phone: Comment on above: Expected: 12/28/2023 , Expires: 12/27/2024 Start: 12-05-2023 [facility] Start: 02-18-2023 COVID-19 Vaccine ( season) COVID-19 Vaccine () [facility] Start: 02-18-2019 Influenza vaccination Flu vaccine (# 1) [facility] [place] Start: 2017 Administration of varicella zoster vaccine Zoster (Shingles) Vaccine (1 of 2) [facility] Start: 1988 Screening for malign ant neoplasm of cervix Pap Smear [facility] Start: 1986 DTaP,Tdap and Td Vaccines (1 - Tdap) DTaP,Tdap and Td Vaccines (1 - Tdap) [facility] Start: 1979 Depression Screening Depression Scre ening [facility] Start: 1967 Tobacco Counseling Tobacco Counselin g [facility] CT Unspecified body region [facility] Patient Education [facility] Work Phone: Patient referral [facility] Work Phone: Immunizations Immunization Date Immunization Notes Care Provider Fa cility 06-20-2021 COVID-19 Vaccine Mod mateo - Documentation Purposes Only Maria R Martin Other [facility] 10-04-2020 COVID-19 Vaccine Mod mateo - Documentation Purposes Only Maria R Martin Other [facility] 09-04-2020 COVID-19 Vaccine Mod mateo - Documentation Purposes Only Maria R Martin Other [facility] Payers Date Payer Category Payer Medicaid HMO [facility] MEDICAID Member Subscriber Plan / Payer (Effective 2023-Present) Name: Lana Hurtado Relation to Subscriber: Self Name: Lana Hurtado Payer ID: [id number] (NAIC) Group ID: [id number] Type: Not on file Address: [place] [phone] [id number] 2023 Commercial Managed Care - [employer] [id number] 2023 Unknown [employer] Kelby HERRERA SUPERMED [id number] 2023-Present [phone] [address] [place] [address] [id number] 2023 Private Health Insurance [id number] 2023 Self-pay [id number] 2023 Unknown [id number] 2019 Medicaid ACUTE 08-19-2019 Medicaid PENDING MEDICAID PENDING MEDICAID xxxxx 08/19/2019-Present xxxxx [id number] 1967 Unknown [id number] 1967 Unknown [id number] [id number] 1967 Unknown [id number] 1967 Unknown [id number] 1967 Unknown [id number] 1967 Unknown [id number] [id number] 1967 Unknown [id number] Private Health Insurance [id number] Private Health Insurance [id number] Unknown [id number] Unknown [id number] Unknown [id number] Unknown [id number] [id number] Unknown [id number] Social History Date Type Detail Facility Start: 09-02-2019 End: 12-28-2023 Tobacco smoking status [facility] Current every day smoker [place] History of tobacco use Cigarette Smoker [place] Start: 11-29-2018 End: 09-02-2019 Cigarettes smoked current (pack per day) - Reported [place] Start: 09-02-2019 End: 08-20-2024 Alcohol intake Current drinker of alcohol (finding) [place], [place] Start: 1965 Sex Assigned At Not on file [place] Start: 01-22-2021 End: 07-30-2024 Tobacco smoking status [facility] Smoker (finding) [facility] Start: 1965 Sex Assigned At Female [facility] Start: 11-29-2018 End: 04-11-2024 Sex Assigned At [facility] Other Start: 12-28-2023 Tobacco use and exposure Smokeless tobacco non-user [facility] Start: 12-28-2023 Alcohol Comment occasionally [facility] Start: 01-23-2015 End: 07-30-2024 Sex Female (finding) [facility] Goals Date Patient Goal Desired Activity /State Clinical Notes 08-07-2020 to 07-25-2024 Mukund-Michael Vu, DO - 07/25/2024 10:15 AM ESTPatient InstructionsJeshazia Stewart, AUD - 07/25/2024 10:00 AM ESTQuyn-Michael Vu, DO - 04/11/2024 10:45 AM EDTPatient InstructionsPatient Instructions Note Date & Type Note Facility 07-25-2024 History of Presen t illness Narrative Images from the original note were not included. [facility] [address] [place] [address] SUBJECTIVE: Patient ID ([id number]): Lana Hurtado is a 59 y.o. female presents today for Chief Complaint Patient presents with Follow-up 3-4 month check Ear Problem HPI: Lana is seen in follow up today for ETD. Patient was last seen on 04/11/2024. Patient has a history of ETD, with type C tympanograms at previous appointment. She currently uses Flonase, which gives her some relief with her associated aural fullness. Patient also has a history of dysphonia that as been going on for about 3 years. She had a prior CT neck that showed left vocal cord asymmetry with possible concerns for vocal cord paralysis. Previous flexible laryngoscopy showed that her true vocal cords were erythematous/edematous but mobile. Swallow study was previously ordered and patient was unable to obtain one. Patient is a current smoker. HISTORY: History reviewed. No pertinent past medical history. History reviewed. No pertinent surgical history. History reviewed. No pertinent family history. Social History Socioeconomic History Marital status: Spouse name: Not on file Number of children: Not on file Years of education: Not on file Highest education level: Not on file Occupational History Not on file Tobacco Use Smoking status: Every Day Types: Cigarettes Smokeless tobacco: Never Vaping Use Vaping status: Never Used Substance and Sexual Activity Alcohol use: Yes Comment: occasionally Drug use: Yes Types: Marijuana Sexual activity: Defer Other Topics Concern Not on file Social History Narrative Not on file Social Drivers of Health Financial Resource Strain: Not on file Food Insecurity: Not on file Transportation Needs: Not on file Physical Activity: Not on file Stress: Not on file Social Connections: Not on file Interpersonal Safety: Not on file Housing Instability: Not on file No Known Allergies Current Outpatient Medications Medication Sig Dispense Refill albuterol (PROVENTIL HFA;VENTOLIN HFA) 90 mcg/actuation inhaler Inhale 2 puffs as needed for wheezing or shortness of breath. atorvastatin (LIPITOR) 40 mg tablet Take 1 tablet (40 mg total) by mouth in the morning. [id number] 160-9-4.8 mcg/actuation HFA aerosol inhaler Inhale 4.8 mcg in the morning and at bedtime. fluticasone propionate (FLONASE) 50 mcg/actuation nasal spray Administer 2 sprays into each nostril in the morning. 16 g 11 sertraline (ZOLOFT) 50 mg tablet Take 1 tablet (50 mg total) by mouth in the morning. cholecalciferol, vitamin D3, (VITAMIN D3) 5,000 units capsule Take 1 capsule (5,000 Units total) by mouth in the morning. (Patient not taking: Reported on 07/25/2024) No current facility-administered medications for this visit. REVIEW OF SYSTEMS: Review of Systems Constitutional: Negative for chills and fever. HENT: Positive for congestion, hearing loss, postnasal drip, rhinorrhea, sore throat and tinnitus (cracking, right). Negative for ear discharge, ear pain, sinus pressure, sinus pain and trouble swallowing. Respiratory: Positive for cough and shortness of breath. Cardiovascular: Negative for chest pain and palpitations. Gastrointestinal: Negative for nausea and vomiting. Musculoskeletal: Positive for neck pain and neck stiffness. Neurological: Positive for headaches. Negative for dizziness and light-headedness. Hematological: Does not bruise/bleed easily. Data Reviewed: PHYSICAL EXAMINATION: Temp 36.6 C (97.9 F) (Temporal) Ht 157.5 cm (5' 2 ) Wt 53.1 kg (117 lb) BMI 21.40 kg/m Constitutional: Healthy, alert, cooperative, and in no distress and normal ablility to communicate . Voice normal quality. Head/Face: Normocephalic, without obvious abnormality, salivary glands normal, atraumatic, sinuses nontender, and facial nerve intact Eyes: No gross abnormalities., EOMI, no nystagmus, no lid ptosis, and wears glasses Ear: RIGHT: hearing normal, external ear normal, canal normal, TM normal without fluid or infection, mid ear effusion: serous, and decreased TM mobility LEFT: hearing normal, external ear normal, canal normal, TM normal without fluid or infection, decreased TM mobility, and See procedure note. Nose: External nose appears normal Oral: normal lips Respiration: No stridor, Normal respiratory effort. Heart: Regular rate Neurologic: Grossly normal Alert Oriented X 3 Affect normal Cranial nerves 2 -12 grossly intact Myringotomy Procedure Note Pre-operative Diagnosis: Bilateral Eustachian dysfunction, otitis media with effusion-right Post-operative Diagnosis: Same Procedure: Myringotomy bilateral with Airplane Tube Placement Surgeon: Bruce Delgadillo DO Anesthetic: Topical phenol Indications: History of persistent effusion, acute suppurative otitis media, and/or ETD refractory to medical management. Patient was symptomatic with abnormal tympanometry evaluation . Procedure Technique: Patient was taken to the procedure room where they were placed in the supine position under the microscope. Right ear: An ear speculum was placed to allow microscopic evaluation. Suction, curette, and/or peroxide were used to remove skin, wax, and debris from the canal and drum. The drum and/or canal was anesthestized. A radial incision was then made in the posterior inferior portion of the drum. Middle ear was suctioned and serous effusion was found and/or removed. A(n) airplane tube was then placed with a pick and alligator method . No drops were placed into the canal and a cotton ball was used to occlude the canal. Left ear: An ear speculum was placed to allow microscopic evaluation. Suction, curette, and/or peroxide were used to remove skin, wax, and debris from the canal and drum. The drum and/or canal was anesthestized. A radial incision was then made in the posterior inferior portion of the drum. Middle ear was suctioned and no effusion was found and/or removed. A(n) airplane tube was then placed with a pick and alligator method . No drops were placed into the canal and a cotton ball was used to occlude the canal. Complications: none. Patient Status: successful ASSESSMENT/PLAN: Lana was seen today for follow-up and ear problem. Diagnoses and all orders for this visit: Otitis media with effusion, right ETD (Eustachian tube dysfunction), bilateral Dysphagia, unspecified type Current smoker Plan: - A tympanometry evaluation was performed before patient's appointment. This showed type B normal ECV in the right ear and type C tympanograms in the left ear. PE noted effusion on the right. Patient is candidate for bilateral myringotomy with airplane tube insertion. - Consent was obtained for bilateral myringotomy with airplane tube insertion. Procedure was completed in office and tolerated well. - Discussed the importance of quitting smoking with patient. - Patient to see her dentist for poor dentition. - Patient to obtain her swallow study that was previously ordered. - Return in 3-4 months. - MYRINGOTOMY AND TUBES POST-OPERATIVE INSTRUCTIONS Postop activity may be normal the same day and school attendance is allow the next day. Ear popping, crackling or discomfort with yawning, chewing, or belching are common following the insertion of tubes. Tylenol or ibuprofen will help relieve these discomforts and they will disappear as the ear returns to normal function. Ear drainage may be seen postoperatively. It can be clear, yellow, purulent, or bloody appearing. This is normal and will be treated with ear drops. Drops are usually used for 3-7 days. Typically 3 drops twice a day for 3-7 days unless otherwise stated by your provider. Drops are made specifically for the ears, so as not to hurt, but some patients find them uncomfortable. If this discomfort can be tolerated, please continue using the drops as prescribed, however stop using the drops if they caused a great deal of pain. To use the drops, warm them by holding them in your hands or pocket for 5 minutes, and gently pull the ear up and back insert the drops in the canal with the head turned to the side. Remain in this position for 1-5 minutes or as long as your child will cooperate. Repeated on the other side if indicated. Ear plugs are not necessary while tubes are in. With routine showers or baths, treat the ears as normal. If the head is submerged in an unclean pool, pond, diehl, ocean, or river then an antibiotic drop should be used in the ear(s) with tubes, at the end of the day to prevent infection. A postop visit should be scheduled for 4-6 weeks. Please call the office at [phone] if this has not already been done. A follow-up visit every 6 months will be performed until the tubes have fallen out. This usually happens in approximately 1-2 years. If you have any other questions or concerns, please feel free to call the office at [phone] Bruce Delgadillo DO Scribe Statement: Scribed for and in the presence of Bruce Delgadillo DO by Guillermina Baez (scribe). Guillermina Baez 07/25/2024 10:58 AM Provider Statement: I Bruce Delgadillo DO personally performed the services described in the documentation as described by the above named scribe in my presence. It is both accurate and complete at the time of final signature. Dr. Bruce Degladillo 07/25/2024 5:17 AM Counseling: The following elements of medical decision making were considered during this visit: Reviewed and summarized previous records and Independent interpretation of test performed by another physician or qualified healthcare provider not separately reported (tympanogram, audiogram, imaging). The patient was counseled regarding prognosis, risks and benefits of treatment options, impressions, importance of compliance with treatment and risk factor reductions. The patient verbalized understanding and agreement to the plan. Please note that parts of this chart were generated using voice recognition M*Modal dictation software. Although every effort was made to ensure the accuracy of this automated rv body mechanic, some errors in rv body mechanic may have occurred. documented in this encounter [facility] 07-25-2024 Instructions Guillermina Baez - 07/25/2024 10:15 AM EST - A tympanometry evaluation was performed before patient's appointment. This showed type B normal ECV in the right ear and type C tympanograms in the left ear. Patient is candidate for bilateral myringotomy with airplane tube insertion. - Consent was obtained for bilateral myringotomy with airplane tube insertion. Procedure was completed in office and tolerated well. - Discussed the importance of quitting smoking with patient. - Patient to see her dentist for poor dentition. - Patient to obtain her swallow study that was previously ordered. - Return in 3-4 months. - MYRINGOTOMY AND TUBES POST-OPERATIVE INSTRUCTIONS Postop activity may be normal the same day and school attendance is allow the next day. Ear popping, crackling or discomfort with yawning, chewing, or belching are common following the insertion of tubes. Tylenol or ibuprofen will help relieve these discomforts and they will disappear as the ear returns to normal function. Ear drainage may be seen postoperatively. It can be clear, yellow, purulent, or bloody appearing. This is normal and will be treated with ear drops. Drops are usually used for 3-7 days. Typically 3 drops twice a day for 3-7 days unless otherwise stated by your provider. Drops are made specifically for the ears, so as not to hurt, but some patients find them uncomfortable. If this discomfort can be tolerated, please continue using the drops as prescribed, however stop using the drops if they caused a great deal of pain. To use the drops, warm them by holding them in your hands or pocket for 5 minutes, and gently pull the ear up and back insert the drops in the canal with the head turned to the side. Remain in this position for 1-5 minutes or as long as your child will cooperate. Repeated on the other side if indicated. Ear plugs are not necessary while tubes are in. With routine showers or baths, treat the ears as normal. If the head is submerged in an unclean pool, pond, diehl, ocean, or river then an antibiotic drop should be used in the ear(s) with tubes, at the end of the day to prevent infection. A postop visit should be scheduled for 4-6 weeks. Please call the office at [phone] if this has not already been done. A follow-up visit every 6 months will be performed until the tubes have fallen out. This usually happens in approximately 1-2 years. If you have any other questions or concerns, please feel free to call the office at [phone] Mukund-Michaelmadyson Delgadillo DO documented in this encounter [facility] [employer] [facility] 07-25-2024 History of Presen t illness Narrative TYMPANOMETRY EVALUATION Reason for visit: CC: A tympanometry assessment was completed today per Dr. Bruce Delgadillo. Patient continues to have pressure and decreased hearing in her right ear. RESULTS: Otoscopic Evaluation: Right Ear: Abnormal TM appearance Left Ear: Unremarkable Immittance Measures: Right Ear: Type B normal ECV Left Ear: Type C RECOMMENDATIONS: Follow up with Dr. Bruce Delgadillo Re-test per otologic management Maxi Tucker, [facility] Insurance Actuary documented in this encounter [facility] 04-11-2024 History of Presen t illness Narrative Images from the original note were not included. [facility] [address] [place] [facility] [id number] SUBJECTIVE: Patient ID ([id number]): Lana Hurtado is a 58 y.o. female presents today for Chief Complaint Patient presents with Follow-up 3 month follow up HPI: Lana presents today for repeat audiogram. Patient was last here on 12/28/2023. Patient was previously seen for hoarseness and right ETD. Patient regularly gets cerumen removed by PCP, and uses otic drops at home. Previously, she presented with aural fullness as well. She notes that her right ear has improved with a nasal spray and is not has full as it was at the previous appointment, but she continues to hear crackling in it. Patient's previous audiogram showed type C tympanogram in the right ear and type A in the left, with bilateral moderate SNHL. Patient has had dysphonia ongoing for about [address] a [address] neck 10/04/2022 that showed left vocal cord asymmetry with possible concerns for vocal cord paralysis. Previous flexible laryngoscopy showed that her true vocal cords were erythematic/edematous. Previously ordered fluoroscopy esophagram, which she was unable to obtain. Patient reports that she is still working on quitting smoking. HISTORY: History reviewed. No pertinent past medical history. History reviewed. No pertinent surgical history. History reviewed. No pertinent family history. Social History Socioeconomic History Marital status: Spouse name: Not on file Number of children: Not on file Years of education: Not on file Highest education level: Not on file Occupational History Not on file Tobacco Use Smoking status: Every Day Types: Cigarettes Smokeless tobacco: Never Vaping Use Vaping status: Never Used Substance and Sexual Activity Alcohol use: Yes Comment: occasionally Drug use: Yes Types: Marijuana Sexual activity: Defer Other Topics Concern Not on file Social History Narrative Not on file Social Drivers of Health Financial Resource Strain: Not on file Food Insecurity: Not on file Transportation Needs: Not on file Physical Activity: Not on file Stress: Not on file Social Connections: Not on file Interpersonal Safety: Not on file Housing Instability: Not on file No Known Allergies Current Outpatient Medications Medication Sig Dispense Refill albuterol (PROVENTIL HFA;VENTOLIN HFA) 90 mcg/actuation inhaler Inhale 2 puffs as needed for wheezing or shortness of breath. atorvastatin (LIPITOR) 40 mg tablet Take 1 tablet (40 mg total) by mouth in the morning. [id number] 160-9-4.8 mcg/actuation HFA aerosol inhaler Inhale 4.8 mcg in the morning and at bedtime. sertraline (ZOLOFT) 50 mg tablet Take 1 tablet (50 mg total) by mouth in the morning. cholecalciferol, vitamin D3, (VITAMIN D3) 5,000 units capsule Take 1 capsule (5,000 Units total) by mouth in the morning. (Patient not taking: Reported on 04/11/2024) fluticasone propionate (FLONASE) 50 mcg/actuation nasal spray Administer 2 sprays into each nostril in the morning. 16 g 11 No current facility-administered medications for this visit. REVIEW OF SYSTEMS: Review of Systems Constitutional: Negative for chills and fever. HENT: Positive for congestion, hearing loss, postnasal drip, rhinorrhea and tinnitus (cracking when yawning). Negative for ear discharge, ear pain, facial swelling, sinus pressure, sinus pain, sore throat, trouble swallowing and voice change. Respiratory: Positive for cough and shortness of breath. Cardiovascular: Negative for chest pain and palpitations. Gastrointestinal: Negative for nausea and vomiting. Neurological: Positive for headaches. Negative for dizziness and light-headedness. Hematological: Does not bruise/bleed easily. Data Reviewed: RESULTS: Otoscopic Evaluation: Right Ear: Unremarkable Left Ear: Unremarkable Immittance Measures: Right Ear: Type C Left Ear: Type C RECOMMENDATIONS: Follow up with Dr. Lilly-Michael Vu Re-test per otologic management Maxi Tucker, [facility] Insurance Actuary PHYSICAL EXAMINATION: Temp 36.7 C (98 F) (Temporal) Ht 157.5 cm (5' 2 ) Wt 53.3 kg (117 lb 6.4 oz) BMI 21.47 kg/m Constitutional: Healthy, Alert, Cooperative, and In No Apparent Distress and Normal Ability to Communicate Voice normal quality and volume Head/Face: Normocephalic, without obvious abnormalities present, salivary glands normal, Atraumatic, Sinuses nontender without overlying facial swelling or deformity, and facial nerve intact bilaterally Eyes: No gross abnormalities., Gaze Alignment Straight, No spontaneous nystagmus at rest, PERRL, EOMI, Glasses Present, and No visible upper eyelid ptosis Ear: RIGHT: Auricle: normal size, shape, without obvious skin lesions, Normal hearing in exam room, External ear canal normal: no otorrhea, lesions, skin erythema, or swelling, Tympanic Membrane Intact, visible middle ear space appears aerated., No visible erythema or swelling overlying mastoid region., and Tympanic Membrane abnormal due to retraction LEFT: Auricle: normal size, shape, without obvious skin lesions, Normal hearing in exam room, External ear canal normal: no otorrhea, lesions, skin erythema, or swelling, Tympanic Membrane Intact, visible middle ear space appears aerated., and No visible erythema or swelling overlying mastoid region. Nose: Normal external nasal skin & alignment upper and lower nasal cartilages, without obvious deformity, caudal septum midline, normal intranasal mucosa, normal turbinates, and no nasal polyps, masses, or signs of recent/active bleeding Oral: Normal appearance upper and lower lips, Buccal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 Diagnosis Onset Date Resolution Status COPD (chronic obstructive pulmonary disease) acute Nicotine dependence, cigarettes, uncomplicated acute Tobacco abuse acute [facility] Work Phone: Evaluation note* Diagnosis Onset Date Resolution Status COPD (chronic obstructive pulmonary disease) acute Nicotine dependence, cigarettes, uncomplicated acute Tobacco abuse acute COPD (chronic obstructive pulmonary disease) acute Nicotine dependence, cigarettes, uncomplicated acute Tobacco abuse acute [facility] Work Phone: Evaluation note* Diagnosis Sensation of fullness in both ears- Primary Dysfunction of both eustachian tubes Hoarseness Dysphonia Dysphagia, unspecified type Current smoker [facility] Diagnosis Other specified disorders of eustachian tube, bilateral- Primary [facility] Diagnosis Onset Date Resolution Status Admit Date COPD (chronic obstructive pulmonary disease) acute July 11:06am Nicotine dependence, cigarettes, uncomplicated acute Februa 2024 11:06am Tobacco abuse acute July 302024 11:06am [facility] Work Phone: Evaluation note* Diagnosis Sensation of fullness in right ear- Primary Other specified disorders of eustachian tube, right ear [facility] Diagnosis Dysphonia- Primary Dysphagia, unspecified type Sensorineural hearing loss (SNHL) of both ears ETD (Eustachian tube dysfunction), right Nasal deviation Regurgitation of food PND (post-nasal drip) Postnasal drip Current smoker [facility]* Diagnosis Other specified disorders of eustachian tube, bilateral- Primary [facility]* Diagnosis Otitis media with effusion, right- Primary ETD (Eustachian tube dysfunction), bilateral Dysphagia, unspecified type Current smoker [facility] Author Rickey Sears [facility] December 05, 2023 8:47am Note Date/Time December 05, 2023 8:47 am [facility] [address] [place] [address] Gastroenterology H&P Signed Patient: Lana Hurtado MR#: [id number] : 1965 Acct:[id number] Age/Sex: 58 / F Adm Date: 4 Loc: Room: Type: [facility] Attending Dr: Rickey Sears MD [facility]~ Date of Service: 12/05/2023 HISTORY & PHYSICAL: Patient's history with special attention to the cardiovascular, pulmonary systems and the current problem was reviewed with the patient immediately prior to the procedure. Present medications and doses reviewed in the EMR. Allergies and pertinent laboratory tests were also reviewedat this time in the EMR. The physical examination, as below, was then performed. Indication, assessment and HPI: 58-year-old female here for screening colonoscopy Family history of GI malignancy? No PHYSICAL EXAMINATION General appearance: NAD Skin: No jaundice Head: NC/AT Eyes: Anicteric Neck: Supple Lungs: Normal respiratory effort, no use of accessory muscles Abdomen: nondistended Neuro: Ox3. REVIEW OF SYSTEMS Constitutional: Denies malaise, fevers Cardiovascular: Denies chest pain, palpitations Respiratory: Denies shortness of breath, wheezing Gastrointestinal: As per HPI Genitourinary: Denies dysuria, polyuria Musculoskeletal: Denies joint swelling, joint stiffness Neurological: Denies confusion, numbness, tingling Endocrine: Denies fatigue Written informed consent obtained from the patient. Risks (including but not limited to perforation, infection, bloating, bleeding, need for emergent surgeryand loss of life), benefits and alternatives explained and questions answered. The patient verbalized understanding. Based on history patient is an appropriate candidate for the procedure. Rickey Sears M.D. Documented By: Rickey Sears MD 12/05/2347 Signed By: <Electronically signed by Rickey Sears MD> 12/05/2306 [facility] Work Phone: History general Narrative - Reported* Type Description Date Medical History osteopenia Medical History IBS Medical History pneumonia Surgical History tubal Surgical History hysterectomy (still has ovaries ) 2007 Hospitalization History see surgical hx [facility] Other InstructionsNot on filedocumented in this encounter [facility] filed[facility] this [facility] on filedocumented in this encounter [facility] [employer] [facility] Summary Purpose Family History Relationship Condition Age at Onset Recorded Date/T braulio brother Unknown Aneurysm Unknown father Heart disease Unknown Not Specified Malignant neoplasm Unknown Unknown Relationship Condition Age at Onset Recorded Date/T braulio brother Unknown Cerebral aneurysm Unknown father Heart disease Unknown Not Specified Unknown Malignant neoplasm of lung Unknown Relationship Condition Age at Onset Recorded Date/T braulio brother Unknown Cerebral aneurysm Unknown father Heart disease Unknown mother Unknown Malignant neoplasm of lung Unknown Advance Directives Documents on File Type Date 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 Advance Directives and Living Will Power of Iuss Acoustic Analyst Latest Code Status on File Code Status Date Activated Date Inactivated Comments Full Code 09/03/2019 8:14 AM Full Code 09/03/2019 1:19 AM 09/03/2019 8:14 AM Advance Directive Response Recorded Date/ Time Advance Directives No April 14, 2018 12:46pm Advance Directive Response Recorded Date/ Time Advance Directives No April 14, 2018 11:46am Chief Complaint and Reason for Visit Chief Complaint Follow for axuiliary lympnodes Chief Complaint Follow for axuiliary lympnodes Cough, SOB, HxCOPD Chief Complaint j44.9 Chief Complaint rt ear issues Chief Complaint COPD Reason for Visit COPD (chronic obstru ctive pulmonary disease) Nicotine dependence, cigarettes, uncomplicated Tobacco abuse Chief Complaint COPD Screening Reason for Visit COPD (chronic obstru ctive pulmonary disease) Nicotine dependence, cigarettes, uncomplicated Tobacco abuse Chief Complaint COPD Screening Screening Screening Reason for Visit COPD (chronic obstru ctive pulmonary disease) Nicotine dependence, cigarettes, uncomplicated Tobacco abuse Chief Complaint COPD Screening Screening Screening H wk f/u COPD Reason for Visit COPD (chronic obstru ctive pulmonary disease) Nicotine dependence, cigarettes, uncomplicated Tobacco abuse COPD (chronic obstructive pulmonary disease) Nicotine dependence, cigarettes, uncomplicated Tobacco abuse Chief Complaint Admit Date H mo f/u COPD July 30, 2024 11:06am Reason for Visit Admit Date COPD (chronic obstructive pulmonary dise ase) July 30, 2024 11:06am Nicotine dependence, cigarettes, uncompl icated July 30, 2024 11:06am Tobacco abuse July 30, 2024 11:06am Reason for Referral Specialty Diagnoses / Procedures Referred By Annabelle t Referred To Contact Diagnoses Dysphagia, unspecified type Regurgitation of food Procedures Fluoroscopy esophagus Bruce Delgadillo DO [address] [address] Referral ID Status Reason Start Date Expiration Date V isits Requested Visits Authorized [id number] Pending Review 12/28/2023 12/27/2024 1 1 Additional Source Comments INFORMATION SOURCE (unrecogn ized section and content) DATE CREATED AUTHOR 09/05/2019 [facility] DATE CREATED AUTHOR AUTHOR'S ORGANIZ ATION 09/19/2020 [facility] DATE CREATED AUTHOR AUTHOR'S ORGANIZ ATION 11/01/2020 [facility] DATE CREATED AUTHOR AUTHOR'S ORGANIZ ATION 12/14/2023 [facility] DATE CREATED AUTHOR AUTHOR'S ORGANIZ ATION 07/27/2024 [facility] Care Teams (unrecognized sec tion and content) Team Status: Inactive Member Role Status Dates [facility] Active Melida Nagy ([facility] CRISTINA Attending Provider Active Team Status: Active Member Role Status Dates [facility] Active Team Status: Inactive Member Role Status Dates [facility] Active Karen Mcghee [facility] Emergency Provider Active Team Status: Inactive Member Role [facility] Active Michelle Rascon APRN Attending Provider Active Team Status: Inactive Member Role Status D[facility] Active Tad Boyer DO Emergency Provider Active Team Status: Inactive Member Role Status D[facility] Active Start: November 15, 2023 End: November 15, 2023 Maria R Salazar APRN [facility] Attending Provider Active Start: November 15, 2023 End: November 15, 2023 Team Status: Inactive Member Role Status Dates [facility] Primary Care Provider Active Start: December 02, 2023 End: December 02, 2023 Referral Self Attending Provider Active Start: J 2023 End: December 02, 2023 Michelle Rascon APRN Referring Provider Active Start: December 02, 2023 End: December 02, 2023 Team Status: Inactive Member Role Status Dates [facility] Primary Care Provider Active Start: December 05, 2023 End: December 05, 2023 Rickey Sears MD Attending Provider Active Start: December 05, 2023 End: December 05, 2023 Team Status: Active Member Role Status Dates [facility] Primary Care Provider Active Start: December 05, 2023 Rickey Sears MD Attending Provider, Other Provider Act je Start: December 05, 2023 Team Status: Inactive Member Role Status Dates [facility] Primary Care Provider Active Start: January 23, 2024 End: January 23, 2024 CRISTINA To Attending Provider Active Start: January 23, 2024 End: January 23, 2024 Team Status: Inactive Member Role Status Dates [facility] Primary Care Provider Active Start: July 30, 2024 End: July 30, 2024 CRISTINA To Attending Provider Active Start: July 30, 2024 End: July 30, 2024 Goals (unrecognized section and content) Goals may be documented in a n alternate sectionGoals may be documented in an alternate sectionGoals may be documented in an alternate sectionNo InformationNo InformationNo InformationGoals may be documented in an alternate sectionGoals may be documented in an alternate sectionGoals may be documented in an alternate sectionNot on filedocumented as of this encounterNot on filedocumented as of this encounterGoals may be documented in an alternate sectionNot on filedocumented as of this encounterNot on filedocumented as of this encounterNot on filedocumented as of this encounterNot on filedocumented as of this encounter REASON FOR VISIT (unrecogniz ed section and content) Reason Comments Follow-up 3 month follow up Reason Comments Hoarse disorder of eustachian tube right Specialty Diagnoses / Procedures Referred By Annabelle t Referred To Contact Otolaryngology Diagnoses Hoarseness Disorder of right eustachian tube Michelle Rascon APRN-ELECTRIC BATH ATTENDANT [address] [place] [address] [facility] [id number] [facility], [address] [place] [address] Referral ID Status Reason Start Date Expiration Date Visits Requested Visits Authorized [id number] Pending Review Specialty Services Required 10/26/2023 10/25/2024 1 1 Reason Comments Follow-up 3-4 month check Ear Problem FOR RECORDS PERTAINING TO PATIENTS WHO ARE OR HAVE BEEN ENROLLED IN A CHEMICAL DEPENDENCY/SUBSTANCEABUSE PROGRAM, SOME INFORMATION MAY BE OMITTED. This clinical summary was aggregated from multiple sources. Caution should be exercised in using it in the provision of clinical care. This summary normalizes information from multiple sources, and as a consequence, information in this document may materially change the coding, format and clinical context of patient data. In addition, data may be omitted in some cases. CLINICAL DECISIONS SHOULD BE BASED ON THE PRIMARY CLINICAL RECORDS. [facility] [employer] provides no warranty or guarantee of the accuracy or completeness of information in this document.
[2024-08-21 05:11] VITALS: BP 179/117; PULSE 89; TEMP 36.9; O2SAT 97
--- NOTE | 2024-08-21 05:14 | PC.NURSE ---
complains of chronic neck pain, ' i was seen here a year for this same thing
--- NOTE | 2024-08-21 05:25 | ED.NECK1 ---
HPI HPI - Neck Pain/Injury General Chief Complaint: Neck Pain/Injury Stated Complaint: NECK PAIN Time Seen by Provider: 08/21/24 05:05 Source: patient Mode of arrival: walk-in Limitations: no limitations History of Present Illness HPI Narrative: This 59-year-old female who has intermittent episodes of neck pain presents for evaluation of severe sharp stabbing and spasming pain on the right side of her neck. She points to the occipitomastoid's area of greatest pain. She states that she has been in a hot tub multiple times over the weekend which helped her neck but she was unable to sleep tonight due to pain and spasm in the right side of her neck. Pain is worse with flexion and extension. She has a certain degree of rotary movement but this also causes her to go into spasms. There is no radiation of pain into her arms or back at this time. She denies any chest pain or shortness of breath. She does admit that she is a heavy smoker. She was seen here approximately 1 year ago for similar symptoms and was medicated with steroids, anti-inflammatories and muscle relaxants with clinical improvement. She denies any injury to her neck. She states she is scheduled to see her family physician in a couple of weeks and will discuss her ongoing neck issues with her. Her OARRS was reviewed and was negative for any activity. Related Data Home Medications ?Medication ?Instructions ?Recorded ?Confirmed atorvastatin 20 mg tablet 20 mg PO DAILY 08/08/23 08/08/23 buspirone 10 mg tablet 10 mg PO BID 08/08/23 08/08/23 sertraline 50 mg tablet 50 mg PO DAILY 08/08/23 08/08/23 Previous Rx's ?Medication ?Instructions ?Recorded methylprednisolone 4 mg tablets in See Rx Instructions .Route 08/08/23 a dose pack (Medrol (Adolfo)) .COMPLEX #21 ea nabumetone 750 mg tablet 750 mg PO BID PRN pain #10 tabs 08/08/23 orphenadrine citrate 100 mg 100 mg PO BID PRN muscle pain #14 08/08/23 tablet,extended release tabs Allergies Allergy/AdvReac Type Severity Reaction Status Date / Time No Known Drug Allergies Allergy Verified 08/21/24 05:11 Opioid HPI Opioid Management Most Recent Opioid Data: Last Pain Scale 10 08/21/24 05:56 08/21/24 Last MAR Pain Assessment 08/21/24 05:56 Review of Systems ROS Status of ROS 10 or more systems reviewed and unremarkable except as noted in history and below [facility] Social History Smoking status: Current every day smoker Little interest or pleasure in doing things: not at all Feeling down, depressed, or hopeless: not at all Exam Narrative Exam Narrative: Vital signs and Nursing Notes reviewed: Patient is afebrile with a normal pulse, blood pressure is elevated 179/117, she is not hypoxic with pulse ox of 97% on room air General: Awake, alert, oriented, uncomfortable appearing thin female, she is having episodes of neck spasm during the exam HEENT: Normocephalic atraumatic, mucous membranes are moist and pink, eyes are clear, normal conjunctiva, vision is grossly intact, posterior pharynx is normal in appearance. Neck: Supple, no meningeal signs, tenderness to palpation and reproduction of her pain syndrome with palpation of the left occipital mastoid bone on her posterior occiput, there are no pulsatile masses appreciated, she has increasing pain with flexion and extension of the neck. She is able to rotate to the right approximately 30 degrees into the left approximately 15 degrees until she has spasms there is no midline bony vertebral tenderness or step-off Chest: Lungs are diminished with faint expiratory wheezing CVS: Regular rate and rhythm S1-S2, no murmurs rubs or gallops, pulses are brisk and equal bilaterally ABD: Soft, nondistended, nontender, no rebound guarding or rigidity, bowel sounds are normal, no pulsatile masses appreciated Extremities: Moving all extremities, no lower extremity tenderness or swelling noted, negative Homans' sign, pulses are brisk and equal bilaterally Skin: Normal in appearance without rash,pallor, petechiae or purpura Neuro: No focal deficits, site manager strength is intact, no focal deficits noted Constitutional Vital Signs, click to edit/add: Last Vital Signs Temp 98.4 F 08/21/24 05:11 Pulse 89 08/21/24 05:11 Resp 18 08/21/24 05:11 BP 179/117 H 08/21/24 05:11 Pulse Ox 97 08/21/24 05:11 O2 Del Method Room Air 08/21/24 05:11 Course Vital Signs Vital signs: Vital Signs Temperature 98.4 F 08/21/24 05:11 Pulse Rate 89 08/21/24 05:11 Respiratory Rate 18 08/21/24 05:11 Blood Pressure 179/117 H 08/21/24 05:11 Pulse Oximetry 97 08/21/24 05:11 Oxygen Delivery Method Room Air 08/21/24 05:11 Temperature 98.4 F 08/21/24 05:11 Pulse Rate 89 08/21/24 05:11 Respiratory Rate 18 08/21/24 05:11 Blood Pressure 179/117 H 08/21/24 05:11 Pulse Oximetry 97 08/21/24 05:11 Oxygen Delivery Method Room Air 08/21/24 05:11 MDM - Neck Pain/Injury MDM Narrative Medical decision making narrative: This 59-year-old female who was seen here a year ago for neck pain and diagnosed with torticollis presents for evaluation of recurrence of her left-sided neck pain. She states this is similar pain to what she had last year. She denies any injury. She has been using ibuprofen and soaking in a hot tub with mild clinical improvement but she has been unable to sleep all night tonight due to pain and spasm on the left side of her neck. She is tender at the insertion of the posterior belly of the sternocleidomastoid and along the lower occiput with muscle spasms in this area. She has no sign of meningitis. She has not had any fever. Her range of motion is limited but not consistent with meningeal signs. An IV was placed and she was medicated with IV Norflex, Toradol, Solu-Medrol and a milligram of Dilaudid. On reevaluation she is sitting on the bed style and watching television. She appears much more comfortable. She will be discharged home with Rx for a medrol dose pack, norco, zofran, and norflex. I encouraged her to use warm compresses which should help with some degree of muscle spasm and follow-up closely with her family physician for further evaluation and treatment of her neck pain. I did review her OARRS report that did not show any activity. Discharge Plan Discharge Chief Complaint: Neck Pain/Injury Clinical Impression: Torticollis, Musculoskeletal neck pain Patient Disposition: Home, Self-Care Time of Disposition Decision: 06:20 Condition: Good Prescriptions / Home Meds: No Action atorvastatin 20 mg tablet 20 mg PO DAILY buspirone 10 mg tablet 10 mg PO BID sertraline 50 mg tablet 50 mg PO DAILY nabumetone 750 mg tablet 750 mg PO BID PRN (Reason: pain) Qty: 10 0RF Rx Instructions: Take with food orphenadrine citrate 100 mg tablet extended release 100 mg PO BID PRN (Reason: muscle pain) Qty: 14 0RF methylprednisolone [Medrol (Adolfo)] 4 mg tablets,dose pack See Rx Instructions .ROUTE .COMPLEX Qty: 21 0RF Rx Instructions: Taper as directed Print Language: Ghanaian Instructions: Neck Pain (ED), Acute Neck Pain (ED), Chronic Neck Pain (DC) Referrals: Michelle Sandoval AUDIT SPECIALIST [Primary Care Provider] - 1 week
[2024-08-21] MEDS: ONDANSETRON PF 4 MG/2 ML VIAL IV (05:54)
[2024-08-21] MEDS: KETOROLAC TROMETHAMINE 30 MG/ML VIAL IVP (05:56)
[2024-08-21] MEDS: ORPHENADRINE 60 MG/ 2 ML VIAL IV (05:58)
[2024-08-21] MEDS: HYDROMORPHONE HCL 1 MG/ML CARTRIDGE IV (06:03)
[2024-08-21 06:19] VITALS: BP 149/91; PULSE 76; O2SAT 98
--- NOTE | 2024-08-21 06:40 | PC.NURSE ---
i gave this patient verbal and written discharge orders along with 4 Rx, and this patient voices yes to understanding these. at time of discharge this patient voices no concerns and shows no signs of distress
== END 2024-08-21 06:42 | disposition home or self-care (01) ==
PROVIDERS: Emergency Provider Emergency Medicine; PCP Nurse Practitioner
DX: M43.6 Torticollis (principal); M54.2 Cervicalgia; F17.200 Nicotine dependence, unspecified, uncomplicated
CPT/HCPCS: 96374; 96375; 99284; J1171; J1885; J2360; J2405